=== PATIENT | male | born 1955 | race Caucasian/White ===

== ENCOUNTER → 2020-10-06 15:20 | Outpatient (BNVA) | payer OTHER, SELFPAY | PROVIDERS: PCP Nurse Practitioner Family; Visit Provider Internal Medicine Pulmonary Disease | DX: J44.9 Chronic obstructive pulmonary disease, unspecified (principal); J30.9 Allergic rhinitis, unspecified; R91.8 Other nonspecific abnormal finding of lung field; Z99.81 Dependence on supplemental oxygen | CPT/HCPCS: 99202 ==

== ENCOUNTER 2020-11-11 11:33 | Outpatient (REF) | payer MEDICARE, SELFPAY ==
[2020-11-11 14:33] LABS: Prostate Specific Antigen 2.86 ng/mL (<0.05-4.0)
== END 2020-11-11 11:34 | disposition home or self-care (01) ==
LOC: HO.HMGCLDS 11:33
PROVIDERS: PCP Nurse Practitioner Family; Visit Provider Urology
DX: Z12.5 Encounter for screening for malignant neoplasm of prostate (principal); R97.20 Elevated prostate specific antigen [PSA]
CPT/HCPCS: 36415; 84153

== ENCOUNTER → 2020-11-24 15:55 | Outpatient (BNVA) | payer MEDICARE, SELFPAY | PROVIDERS: PCP Internal Medicine Endocrinology, Diabetes & Metabolism; Visit Provider Urology | DX: R97.20 Elevated prostate specific antigen [PSA] (principal) | CPT/HCPCS: Q3014 ==

== ENCOUNTER → 2021-02-08 09:43 | Outpatient (BNVA) | payer OTHER, SELFPAY | PROVIDERS: PCP Internal Medicine Endocrinology, Diabetes & Metabolism; Visit Provider Internal Medicine Pulmonary Disease | DX: J44.9 Chronic obstructive pulmonary disease, unspecified (principal); R91.8 Other nonspecific abnormal finding of lung field; Z99.81 Dependence on supplemental oxygen | CPT/HCPCS: 99212 ==

== ENCOUNTER 2021-05-03 11:38 | Outpatient (REF) | payer OTHER, SELFPAY ==
[2021-05-03 14:29] LABS: PSA,Total (Free>4and<10) 2.44 ng/mL (0.00-4.00)
== END 2021-05-03 11:39 | disposition home or self-care (01) ==
LOC: HO.HMGCLDS 11:38
PROVIDERS: Visit Provider Urology
DX: Z12.5 Encounter for screening for malignant neoplasm of prostate (principal); N13.8 Other obstructive and reflux uropathy; N40.1 Benign prostatic hyperplasia with lower urinary tract symptoms; R97.20 Elevated prostate specific antigen [PSA]
CPT/HCPCS: 36415; 84153

== ENCOUNTER → 2021-05-24 14:49 | Outpatient (BNVA) | payer OTHER, SELFPAY | PROVIDERS: PCP Internal Medicine Endocrinology, Diabetes & Metabolism; Visit Provider Urology | DX: R97.20 Elevated prostate specific antigen [PSA] (principal); N40.1 Benign prostatic hyperplasia with lower urinary tract symptoms; N13.8 Other obstructive and reflux uropathy | CPT/HCPCS: 99212 ==

== ENCOUNTER → 2021-06-09 09:46 | Outpatient (BNVA) | payer OTHER, SELFPAY | PROVIDERS: PCP Internal Medicine Endocrinology, Diabetes & Metabolism; Visit Provider Internal Medicine Pulmonary Disease | DX: J44.9 Chronic obstructive pulmonary disease, unspecified (principal); R91.8 Other nonspecific abnormal finding of lung field; Z91.09 Other allergy status, other than to drugs and biological substances; Z99.81 Dependence on supplemental oxygen | CPT/HCPCS: 99212 ==

== ENCOUNTER 2021-08-02 08:52 | Day surgery (SDC) | payer OTHER, SELFPAY ==
[2021-07-27 14:41] VITALS: BMI 26.4
--- NOTE | 2021-08-01 09:58 | P.CONAN_ITS ---
Documented by User: Joy Juarez NP 08/01/21 09:59 HPI - Anesthesia Eval Consult details Narrative: 66yo M for Colonoscopy Pulmo cleared O2 dependant @ 2-3L continuous PMFSH Active Problems Active Problems: All Active Problems (Updated 07/27/21 @ 14:31 by Emerald Gayle, RN) COPD (chronic obstructive pulmonary disease) (Acute) Supplemental oxygen dependent (Acute) Allergic rhinitis (Acute) Environmental allergies (Acute) Pulmonary nodules (Acute) Elevated prostate specific antigen [PSA] (Acute) Past Medical History Medical History (Updated 07/27/21 @ 14:31 by Emerald Gayle, RN) Asthma COPD (chronic obstructive pulmonary disease) Elevated prostate specific antigen [PSA] Elevated PSA Gout HTN (hypertension) Hyperlipidemia O2 dependent Surgical History Surgical History (Updated 07/27/21 @ 14:27 by Emerald Gayle RN) History of appendectomy History of left knee surgery History of umbilical hernia repair Social History Social History Patient Tobacco Use Status: Former Tobacco user Tobacco use type: Cigarette Smoked in Last 30 Days: No Use of substances other than those prescribed or required for medical reasons: No Are you DNR?: No Advance Directives: No Advance Directives Information Provided: Yes Recently lost weight without trying: No Nutrition Risks: No Nutritional Risk Meds Allergies Allergy/AdvReac Type Severity Reaction Status Date / Time erythromycin base Allergy Intermediate Diarrhea Verified 08/02/21 09:28 [From Erythrocin] Home Medications Medication Instructions Recorded Confirmed Last Taken Type albuterol sulfate 90 mcg/actuation 2 puff INHALATION QID 02/08/21 07/27/21 Unknown History aerosol inhaler amlodipine 10 mg tablet 10 mg PO DAILY 02/08/21 07/27/21 08/02/21 History atorvastatin 20 mg tablet 20 mg PO DAILY 02/08/21 07/27/21 Unknown History losartan 25 mg tablet 25 mg PO DAILY 02/08/21 07/27/21 08/02/21 History montelukast 10 mg tablet 10 mg PO DAILY 02/08/21 07/27/21 Unknown History fluticasone 500 mcg-salmeterol 50 1 inh INHALATION BID 06/09/21 08/02/21 Unknown History mcg/dose blistr powdr for inhalation (Wixela Inhub) colchicine 0.6 mg tablet 0.6 mg PO DAILY 07/27/21 07/27/21 Unknown History fluticasone 500 mcg-salmeterol 50 1 inh INHALATION BID 08/02/21 08/02/21 08/02/21 History mcg/dose blistr powdr for inhalation (Naomixjulia Inhub) Exam Exam Date and Time: August 01, 2021 0958 Height,Weight and Vital Signs: Height 5 ft 8 in Weight 78.925 kg Assessment and Plan Assessment Anesthesia Assessment: Chart Reviewed Documented by User: Amna Vela MD 08/02/21 10:28 [facility] Past Medical History Medical History (Updated 07/27/21 @ 14:31 by Emerald Gayle RN) Asthma COPD (chronic obstructive pulmonary disease) Elevated prostate specific antigen [PSA] Elevated PSA Gout HTN (hypertension) Hyperlipidemia O2 dependent Family History Family history of problems with anesthesia: No Surgical History Surgical History (Updated 07/27/21 @ 14:27 by Emerald Gayle RN) History of appendectomy History of left knee surgery History of umbilical hernia repair History of Problems with Anesthesia: No Social History Social History Patient Tobacco Use Status: Former Tobacco user Tobacco use type: Cigarette Smoked in Last 30 Days: No Use of substances other than those prescribed or required for medical reasons: No Are you DNR?: No Advance Directives: No Advance Directives Information Provided: Yes Recently lost weight without trying: No Nutrition Risks: No Nutritional Risk Meds Allergies Allergy/AdvReac Type Severity Reaction Status Date / Time erythromycin base Allergy Intermediate Diarrhea Verified 08/02/21 09:28 [From Erythrocin] Home Medications Medication Instructions Recorded Confirmed Last Taken Type albuterol sulfate 90 mcg/actuation 2 puff INHALATION QID 02/08/21 07/27/21 Unknown History aerosol inhaler amlodipine 10 mg tablet 10 mg PO DAILY 02/08/21 07/27/21 08/02/21 History atorvastatin 20 mg tablet 20 mg PO DAILY 02/08/21 07/27/21 Unknown History losartan 25 mg tablet 25 mg PO DAILY 02/08/21 07/27/21 08/02/21 History montelukast 10 mg tablet 10 mg PO DAILY 02/08/21 07/27/21 Unknown History fluticasone 500 mcg-salmeterol 50 1 inh INHALATION BID 06/09/21 08/02/21 Unknown History mcg/dose blistr powdr for inhalation (Wixela Inhub) colchicine 0.6 mg tablet 0.6 mg PO DAILY 07/27/21 07/27/21 Unknown History fluticasone 500 mcg-salmeterol 50 1 inh INHALATION BID 08/02/21 08/02/21 08/02/21 History mcg/dose blistr powdr for inhalation (Wixela Inhub) Exam Height,Weight and Vital Signs: Height 5 ft 8 in Weight 78.925 kg Vital Signs Temp Pulse Resp BP Pulse Ox 08/02/21 09:48 98.5 F 97 18 155/76 H 97 Airway Mallampati Class: III TM Dist: >3cm Neck ROM: Full Loose/Missing/Broken Teeth: No Heart: RRR Lungs: CTAB Assessment and Plan Assessment Anesthesia Assessment: Anesthesia Plan Discussed Final Anesthetic Review Family History of Problems with Anesthesia: No History of Problems with Anesthesia: No NPO: Yes ASA Class: IV Final Preanesthetic Review: No Changes in Pt Med Stat, Meds/Allgs Chart Reviewed, Consent Obtained/Reviewed and Anes Risks/Benef Reviewed Patient Risk: Intermediate Procedure Risk: Low Assessment/Block/Sedation in SS: Assess/Block/Sedation-SS Anesthetic Plan Anesthetic Plan: MAC: Disposition: Standard PACU
[2021-08-02 09:29] VITALS: BMI 26.4
[2021-08-02 09:48] VITALS: BP 155/76; PULSE 97; RESP 18; TEMP 36.9; O2SAT 97
[2021-08-02] MEDS: Lactated Ringers 1,000 ML 100 ML IVCONT (09:58)
--- NOTE | 2021-08-02 10:27 | MHC.SHP ---
Pre-Procedural Eval Section A Date of Service: 08/02/21 The patient is an INPATIENT: No Changes since office visit: No Cold of Flu in the past 2 weeks, No New Medical Problems, No Changes in Medication and No Patient answered all questions The History & Physical has been completed within 30 days and I have reviewed it.: Yes Section B Chief Complaint: screening Allergies: Allergies Allergy/AdvReac Type Severity Reaction Status Date / Time erythromycin base Allergy Intermediate Diarrhea Verified 08/02/21 09:28 [From Erythrocin] Plan I have reviewed the history and physical and performed a pertinent physical examination on my patient. No changes have occurred unless specified.
--- NOTE | 2021-08-02 11:03 | PM.OP ---
Brief Operative Note Date of Service: 08/02/21 Pre-op diagnosis: screening Post-op diagnosis: same Procedure: colonoscopy Surgeon: Genaro Oquendo Anesthesia: MAC Was an Regulatory Associate used for this Procedure?: No Estimated blood loss (mL): 0 Pathology: other Condition: stable Disposition: PACU
[2021-08-02 11:07] VITALS: BP 101/56; PULSE 87; RESP 16; TEMP 36.2; O2SAT 97
[2021-08-02 11:24] VITALS: BP 133/70; PULSE 91; RESP 16; TEMP 36.2; O2SAT 97
--- NOTE | 2021-08-02 11:52 | OP_ITS ---
SURGEON: Genaro Oquendo MD INDICATIONS: Colon cancer screening. PREOPERATIVE DIAGNOSIS: POSTOPERATIVE DIAGNOSIS: PROCEDURE PERFORMED: Colonoscopy to the terminal ileum with snare polypectomy. ESTIMATED BLOOD LOSS: COMPLICATIONS: ANESTHESIA: ASSISTANTS: SPECIMENS: MEDICATIONS: Monitored anesthesia care. DESCRIPTION OF PROCEDURE: History and physical were performed. The risks and benefits of the procedure were explained to the patient. Informed consent was obtained. The patient was placed in the left lateral decubitus position. A digital rectal exam was performed and was found to be normal. The Olympus pediatric video colonoscope was introduced into the rectum and advanced to the cecum without difficulty. The cecum was identified by transillumination, palpation, and identification of ileocecal valve. Examination was performed. The scope was removed. He tolerated the procedure well and was taken to recovery area in stable condition. FINDINGS: The terminal ileum was examined and appeared normal. The visualized colonic mucosa was normal. The quality of the prep was good. Three polyps were identified and removed with a snare. The largest 2 measured approximately 8-10 mm and were located at 70 and 60 cm. The 3rd was located in the rectum measuring 6 mm. There was mild sigmoid diverticulosis with some redundancy to the sigmoid. Retroflexed examination showed some internal hemorrhoids and hypertrophic anal papillae. IMPRESSION: Colon polyps. RECOMMENDATION: Follow up the biopsy results. MD ALEX Sorenson/REGGIE / [id number]
== END 2021-08-02 11:52 | disposition home or self-care (01) ==
PROVIDERS: PCP Nurse Practitioner Family; Visit Provider Internal Medicine Gastroenterology
PROC: 0DJD8ZZ Inspection of Lower Intestinal Tract, Via Natural or Artificial Opening Endoscopic (ICD-10-PCS; CPT 45378; principal; 2021-08-02 10:10)
DX: Z12.11 Encounter for screening for malignant neoplasm of colon (principal); Z83.71 Family history of colonic polyps; D12.4 Benign neoplasm of descending colon; D12.8 Benign neoplasm of rectum; K57.30 Diverticulosis of large intestine without perforation or abscess without bleeding; K64.8 Other hemorrhoids; K62.89 Other specified diseases of anus and rectum; R97.20 Elevated prostate specific antigen [PSA]; J44.9 Chronic obstructive pulmonary disease, unspecified; I10 Essential (primary) hypertension; E78.5 Hyperlipidemia, unspecified; M10.9 Gout, unspecified; Z99.81 Dependence on supplemental oxygen; Z79.51 Long term (current) use of inhaled steroids; Z88.1 Allergy status to other antibiotic agents
CPT/HCPCS: 45385; 88305; J2250

== ENCOUNTER 2021-11-16 13:34 | Outpatient (REF) | payer OTHER, SELFPAY ==
[2021-11-16 17:09] LABS: PSA,Total (Free>4and<10) 2.35 ng/mL (0.00-4.00)
== END 2021-11-16 13:35 | disposition home or self-care (01) ==
LOC: HO.HMGCLDS 13:34
PROVIDERS: PCP Nurse Practitioner Family; Visit Provider Urology
DX: Z12.5 Encounter for screening for malignant neoplasm of prostate (principal); N13.8 Other obstructive and reflux uropathy; N40.1 Benign prostatic hyperplasia with lower urinary tract symptoms; R97.20 Elevated prostate specific antigen [PSA]
CPT/HCPCS: 36415; 84153

== ENCOUNTER → 2021-11-24 11:34 | Outpatient (BNVA) | payer OTHER, SELFPAY | PROVIDERS: PCP Nurse Practitioner Family; Visit Provider Urology | DX: R97.20 Elevated prostate specific antigen [PSA] (principal) | CPT/HCPCS: 99212 ==

== ENCOUNTER → 2021-12-14 10:34 | Outpatient (BNVA) | payer OTHER, SELFPAY | PROVIDERS: PCP Nurse Practitioner Family; Visit Provider Internal Medicine Pulmonary Disease | DX: J44.9 Chronic obstructive pulmonary disease, unspecified (principal); R91.8 Other nonspecific abnormal finding of lung field; Z99.81 Dependence on supplemental oxygen | CPT/HCPCS: 99212 ==

== ENCOUNTER 2022-07-13 15:42 | Outpatient (REF) | payer OTHER, SELFPAY ==
--- NOTE | ~2022-07-13 | CT_ITS ---
EXAMINATION: CT CHEST WITHOUT CONTRAST CLINICAL INFORMATION: Abnormal lung findings. COMPARISON: None available at this institution. TECHNIQUE: Multidetector volumetric CT imaging of the chest was done. Axial MIP volume rendering provided. Sagittal and coronal reformatted images were obtained. This CT examination was performed using dose optimization techniques as appropriate, variously including the following: *Automated exposure control *Adjustment of mA and/or kV according to patient size (this includes techniques or standardized protocols for targeted exams where dose is matched to indication/reason for exam; i.e. extremities or head) *Use of iterative reconstruction technique DLP: 134 mGy-cm FINDINGS: SMALL ENGINE SPECIALIST: Hyperinflated lungs without acute process. LUNGS: There is centrilobular emphysema with patchy ill-defined 1.0 x 0.6 cm opacity right upper lobe adjacent mediastinum, axial image 175/7 and 1 cm opacity left lung apex image 118/7. The 5 mm nodule right upper lobe adjacent posterior mediastinum image 204/7. There is a 5 mm focal thickening within the right major fissure likely lymph node. This mild thickening is also seen in the left major fissure axial image 322/7. There is focal subpleural atelectatic changes right lower lobe posterior segment. MEDIASTINUM: The thyroid lobes are symmetric and normal. The central trachea and the bronchi are widely patent. The heart size normal. Atherosclerotic heart calcified plaques throughout the thoracic arch without aneurysmal dilatation. No abnormal size mediastinal lymph nodes visualized. There is no pericardial effusion. CORONARY ARTERY CALCIFICATION: Moderate coronary artery calcifications are present. PLEURA: There is no pleural effusion. No pleural mass or thickening. AXILLA: Small shotty lymph nodes are seen in bilateral axilla with the largest lymph node measuring 1 cm, nonsuspicious. The chest wall is unremarkable. UPPER ABDOMEN: There is a hypodense lesion in the left hepatic lobe lateral segment measuring 1.5 cm, nonspecific and likely focal fatty infiltration or a cyst. The rest of the liver, spleen, pancreas and bilateral adrenal glands are unremarkable. Gallbladder is not visualized however limited view of upper abdomen. OSSEOUS STRUCTURES: No aggressive lytic or sclerotic process seen. CT/CT chest wo IV con IMPRESSION: 1. Centrilobular emphysema with bilateral upper lobe ill-defined opacities. These could be new inflammatory or infectious etiology or resolving inflammatory changes. There are no previous exams at this institution. 2. There is a 5 mm nodule right upper lobe adjacent to the posterior mediastinum. 3. No abnormal mediastinal or axillary lymph nodes seen. 4. Moderate coronary artery calcifications. 5. Hypodense lesion left lobe lateral segment likely focal fatty infiltration or a cyst. This can be correlated with liver ultrasound. Fleischner guidelines were followed.
== END 2022-07-13 15:43 | disposition home or self-care (01) ==
LOC: HO.CT 15:42
PROVIDERS: Visit Provider Internal Medicine Pulmonary Disease
DX: R91.8 Other nonspecific abnormal finding of lung field (principal)
CPT/HCPCS: 71250

== ENCOUNTER → 2022-07-14 11:04 | Outpatient (BNVA) | payer OTHER, SELFPAY | PROVIDERS: PCP Internal Medicine Endocrinology, Diabetes & Metabolism; Visit Provider Internal Medicine Pulmonary Disease | DX: J44.9 Chronic obstructive pulmonary disease, unspecified (principal); R91.8 Other nonspecific abnormal finding of lung field; Z91.09 Other allergy status, other than to drugs and biological substances; Z99.81 Dependence on supplemental oxygen | CPT/HCPCS: 99212 ==

== ENCOUNTER 2022-11-07 12:49 | Outpatient (REF) | payer OTHER, SELFPAY | END 2022-11-07 12:50 | disposition home or self-care (01) | LOC: HO.HMGCLDS 12:49 | PROVIDERS: PCP Nurse Practitioner Family; Visit Provider Urology | DX: Z12.5 Encounter for screening for malignant neoplasm of prostate (principal); R97.20 Elevated prostate specific antigen [PSA] | CPT/HCPCS: 36415; 84153 ==

== ENCOUNTER 2022-11-24 13:22 | Outpatient (AMB) | payer OTHER, SELFPAY ==
--- NOTE | 2022-11-24 13:36 | A.OFFVIS_ITS ---
Intake Intake Visit Reasons: 1Y PSA(set) Intake Note: Patient presents for follow up PSA Urology Medications: none Blood Thinner: none Accompanied by: Self / Same As Patient Allergies erythromycin base [From Erythrocin] Allergy (Intermediate, Verified 11/24/22 13:40) Diarrhea Medication List - Last Reconciled 11/24/22 by Kenan Abbasi MD albuterol sulfate 90 mcg/actuation 2 puffs inhalation QID amlodipine 10 mg PO DAILY atorvastatin 20 mg PO DAILY azelastine 2 sprays intranasal BID 30 days budesonide-formoterol 160-4.5 mcg/actuation (Symbicort) 2 puffs inhalation BID 30 days colchicine (gout) 0.6 mg PO DAILY losartan 25 mg PO DAILY montelukast 10 mg PO DAILY HPI HPI Comments History of Present Illness Details Bharat HAYES is a very pleasant male. He is a patient of Dr Mosley. He is seen for the following urologic conditions. - lower urinary tract symptoms - elevated PSA Twelve month follow-up PSA remains low Symptoms controlled P.r.n. follow-up Lower Urinary Tract Symptoms:?Likely baseline irritation. 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 ? Current visit is for?further evaluation of, lower urinary tract symptoms, predominate obstructive symptoms.? Current treatment includes?observation.? Prostate Symptom Score?11/28 , Moderate (-), Bother 3.? Symptoms include?11/28 , incomplete emptying, weak stream, nocturia (>2), and are progressing.? Results from testing include? renal/bladder us ?Yes ? PVR ?30 ? prostate size ?40 Heterogeneous with calcifications ? Prior Prostate Score?unknown.? PSA?09/27 12.5, 11/28 2.3, 05/01 4.0, 10/29 2.0, 10/30 2.8, 05/03 2.4, 12/01 2.4, 12/02 2.7 ? Prostate volume?30-50gm.? Testing at next visit will include?bladder scan.? PFSH Medical History Asthma COPD (chronic obstructive pulmonary disease) Elevated prostate specific antigen [PSA] Elevated PSA Gout HTN (hypertension) Hyperlipidemia O2 dependent Surgical History History of appendectomy History of left knee surgery History of umbilical hernia repair Social History Patient Tobacco Use Status: Former Tobacco user Tobacco use type: Cigarette Review of Systems Const Denies chills and Denies fever(s) Card Reports no additional complaints and Denies syncope Resp Denies cough GI Denies abdominal pain and Denies heartburn Reports as per HPI and Denies change in libido Neuro Denies syncope Psych Denies change in libido Endo Denies change in libido Physical Exam Const General: cooperative, healthy appearing, comfortable and no acute distress Orientation/consciousness: patient oriented x3 HEENT Face and sinus: Yes normal facial exam Mouth: moist mucous membranes Neck Neck: Yes normal visual inspection, Yes full ROM and Yes trachea midline Chest Chest palpation & inspection: normal inspection of the chest Resp Effort & Inspection: normal respiratory effort, able to speak in complete sentences and no respiratory distress GI Inspection: Yes normal to inspection Back/Spine/Pelvis Cervical Spine: normal cervical lordosis Thoracic/Lumbar Spine: thoracic and lumbar spine normal to inspection Skin General skin exam: no rashes or lesions noted Neuro General: patient oriented x3, gait normal, tone normal and moves all extremities Extrem General: Yes normal to inspection and Yes capillary refill normal Assessment & Plan Assessment & Plan (1) Elevated prostate specific antigen [PSA]: Code(s): R97.20 - Elevated prostate specific antigen [PSA] Plan P.r.n. follow-up Patient Instructions: Imaging studies, laboratory and physical exam results were discussed and reviewed in detail. No major barriers to patient understanding were identified. An opportunity to ask questions regarding the treatment plan was provided. All questions were answered. The patient expressed understanding and agreement with the above treatment plan. The patient is aware they should contact our office by phone for worsening of their current condition or the appearance of new urologic symptoms. Compliance is encouraged with any medications and followup testing that is ordered. It is a privilege to participate in the urologic care of your patient. If you have any questions or concerns regarding treatment for the above conditions, or other urologic issues, please do not hesitate to contact me. The office telephone contact is [phone]. This note is constructed using voice recognition software. While every effort has been made to ensure accuracy rubber covering machine operator errors may have been included. Yours sincerely, Dr Kenan Abbasi MD, [facility] - Urology Providers of Expert, Compassionate Care for the Genitourinary System Coding Level of Care Code Est Pt Level 4 (36540) Diagnoses Elevated prostate specific antigen [PSA] R97.20
== END 2022-11-24 14:09 | disposition home or self-care (01) ==
PROVIDERS: PCP Nurse Practitioner Family; Visit Provider Urology
DX: R97.20 Elevated prostate specific antigen [PSA] (principal)
CPT/HCPCS: 99213

== ENCOUNTER → 2022-11-24 13:22 | Outpatient (BNVA) | payer OTHER, SELFPAY | PROVIDERS: Visit Provider Urology | DX: R97.20 Elevated prostate specific antigen [PSA] (principal) | CPT/HCPCS: 99212 ==

== ENCOUNTER 2023-01-16 10:47 | Outpatient (AMB) | payer OTHER, SELFPAY ==
[2023-01-16 11:06] VITALS: BP 128/66; PULSE 89; O2SAT 94; BMI 27.1
--- NOTE | 2023-01-16 11:06 | MHC.OFFVIS ---
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 After the last office visit his Wixela been switched to Symbicort secondary to poor tolerance of powder inhalers id now he reports improved symptom control. He denies recent exacerbations. He intermittently uses a Flonase or azelastine for allergic symptoms. He is interested in pulmonary rehab. [facility] Medical History Asthma COPD (chronic obstructive pulmonary disease) Elevated prostate specific antigen [PSA] Elevated PSA Gout HTN (hypertension) Hyperlipidemia O2 dependent Surgical History History of appendectomy History of left knee surgery History of umbilical hernia repair Social History Patient Tobacco Use Status: Former Tobacco user Tobacco use type: Cigarette Review of Systems Const Denies daytime sleepiness, Denies excessive sweating, Denies fatigue, Denies fever(s), Denies lethargy, Denies malaise, Denies night sweats, Denies snoring and Denies weight loss Eyes Denies blurry vision and Denies itchy eyes ENT Denies nasal congestion, Denies post nasal drip, Denies sinus pain, Denies sinus pressure and Denies other ( Thrush) Card Denies chest pain, Denies pedal edema, Denies dyspnea, Denies orthopnea and Denies paroxysmal nocturnal dyspnea Resp Denies cough, Denies hemoptysis, Denies excessive phlegm production, Denies dyspnea, Denies snoring and Denies wheezing GI Denies abdominal pain and Denies heartburn Musc Denies myalgias, Denies arthralgias and Denies joint swelling Skin/Breast Denies rash Neuro Denies memory loss and Denies seizure-like activity Psych Denies abnormal sleep pattern, Denies anxiety and Denies memory loss Endo Denies excessive sweating, Denies fatigue and Denies heat intolerance Dominick/Lymph Denies easy bruising Aller/Immun Denies itchy eyes, Denies seasonal rhinorrhea and Denies wheezing Physical Exam Vital Signs: Last Vital Signs Pulse 89 01/16/23 11:06 BP 128/66 01/16/23 11:06 Pulse Ox 94 01/16/23 11:06 Oxygen Delivery Method Nasal Cannula 01/16/23 11:06 Oxygen Flow Rate 3 01/16/23 11:06 BMI result Body Mass Index 27.1 Const General: no acute distress and alert Nutritional Appearance: not obese Orientation/consciousness: Other orientation findings ( oriented) HEENT Head: Yes atraumatic Eyes General: appearance normal, both eyes and all related structures Sclerae: sclerae normal EOM: EOMs intact bilaterally Neck Neck: Yes supple Lymphatic: no lymphadenopathy noted Resp Effort & Inspection: normal respiratory effort and no use of accessory muscles Auscultation: clear to auscultation bilaterally Cardio Rate: regular rate Rhythm: regular rhythm Heart sounds: no gallops, no murmurs and no rubs Skin General skin exam: other ( warm) Extrem General: No clubbing, No cyanosis and No edema Assessment & Plan Assessment & Plan (1) COPD (chronic obstructive pulmonary disease): Code(s): J44.9 - Chronic obstructive pulmonary disease, unspecified Plan: Controlled current regimen of Symbicort, Spiriva, and albuterol MDI. Continue current regimen. Will refer to Pulmonary Rehab. (2) Supplemental oxygen dependent: Code(s): Z99.81 - Dependence on supplemental oxygen Plan: Continue supplemental oxygen to maintain O2 saturation of 88-92%. (3) Pulmonary nodules: Code(s): R91.8 - Other nonspecific abnormal finding of lung field Plan: Results of CT chest from July of 2019 reviewed, new ground-glass nodules up to [address] chest. (4) Environmental allergies: Code(s): Z91.09 - Other allergy status, other than to drugs and biological substances Plan: Well controlled on as needed Flonase, Singulair, and azelastine. Orders: Orders PFT pulmonary function test Today J44.9 - Chronic obstructive pulmonary disease, unspecified Pulmonary Rehab Today J44.9 - Chronic obstructive pulmonary disease, unspecified CT chest wo IV con Today R91.8 - Other nonspecific abnormal finding of lung field Coding Level of Care Code Est Pt Level 4 (31564) Diagnoses COPD (chronic obstructive pulmonary disease) J44.9 Supplemental oxygen dependent Z99.81 Pulmonary nodules R91.8 Environmental allergies Z91.09
== END 2023-01-16 11:30 | disposition home or self-care (01) ==
PROVIDERS: PCP Nurse Practitioner Family; Visit Provider Internal Medicine Pulmonary Disease
DX: J44.9 Chronic obstructive pulmonary disease, unspecified (principal); Z99.81 Dependence on supplemental oxygen; R91.8 Other nonspecific abnormal finding of lung field; Z91.09 Other allergy status, other than to drugs and biological substances
CPT/HCPCS: 99214

== ENCOUNTER → 2023-01-16 10:47 | Outpatient (BNVA) | payer OTHER, SELFPAY | PROVIDERS: Visit Provider Internal Medicine Pulmonary Disease | DX: J44.9 Chronic obstructive pulmonary disease, unspecified (principal); R91.8 Other nonspecific abnormal finding of lung field; Z91.09 Other allergy status, other than to drugs and biological substances; Z87.891 Personal history of nicotine dependence; Z99.81 Dependence on supplemental oxygen | CPT/HCPCS: 99212 ==

== ENCOUNTER 2023-03-20 10:09 | Outpatient (REF) | payer OTHER, SELFPAY ==
--- NOTE | ~2023-03-20 | CT_ITS ---
EXAMINATION: CT CHEST WITHOUT CONTRAST CLINICAL INFORMATION: Abnormal finding in lung field. COMPARISON: CT chest 07/13/2022: Centrilobular emphysema with bilateral upper lobe ill-defined opacities. These could be new inflammatory or infectious etiology or resolving inflammatory changes. There are no previous exams at this institution. TECHNIQUE: Multidetector volumetric CT imaging of the chest was done. Axial MIP volume rendering provided. Sagittal and coronal reformatted images were obtained. This CT examination was performed using dose optimization techniques as appropriate, variously including the following: *Automated exposure control *Adjustment of mA and/or kV according to patient size (this includes techniques or standardized protocols for targeted exams where dose is matched to indication/reason for exam; i.e. extremities or head) *Use of iterative reconstruction technique DLP: 251 mGy-cm FINDINGS: LUNGS: Again seen are changes of marked emphysema. The previously seen new ill-defined opacity in the right upper lobe (prior 7:175) as well as the spiculated 1 cm opacity left upper lobe (prior 7:121) have resolved indicating that these were inflammatory in nature and not neoplastic. Some other tiny micronodules are seen which are unchanged. No new mass is seen concerning for malignancy. MEDIASTINUM: Heart size normal. Aortic calcification is seen. The visualized thyroid is unremarkable. No mediastinal or hilar lymphadenopathy is seen CORONARY ARTERY CALCIFICATION: Moderate PLEURA: There is no pleural effusion. No pleural mass or thickening. AXILLA: No lymphadenopathy. UPPER ABDOMEN: Unremarkable. Benign cyst is noted in the left lobe of the liver. OSSEOUS STRUCTURES: Degenerative changes are present in the spine. No bony destructive lesions. CT/CT chest wo IV con IMPRESSION: 1. Resolution of previously seen new bilateral upper lobe pulmonary opacities indicating that these were inflammatory in nature and not neoplastic. 2. Marked emphysema. 3. Other incidental findings as described above including benign hepatic cyst and degenerative changes in the spine. Fleischner guidelines were followed.
--- NOTE | 2023-03-20 11:18 | PFT_ITS ---
Indication: COPD the Spirometry [FEV1 to FVC 49%; FEV 1 1.15 L; FVC 2.34 L. No significant response to bronchodilators noted. Maximum voluntary ventilation 35% predicted] Lung Volumes [Lung volume numbers could not be measured] Diffusion Capacity [DLCO 31% predicted] Comparisons [none] Interpretation [There is an obstructive ventilatory defect consistent with severe COPD. No significant response to bronchodilators noted. There is a severe decrease in the maximum voluntary ventilation likely secondary to worsening dynamic inspiratory capacity and also deconditioning. Again lung volumes cannot be completed due to the fact the patient cannot perform the maneuvers required. There is a severe diffusion impairment likely secondary to emphysema. Other parenchymal and or pulmonary vascular condition should be considered.] MTDD
== END 2023-03-20 10:10 | disposition home or self-care (01) ==
LOC: HO.CT 10:09
PROVIDERS: PCP Nurse Practitioner Family; Visit Provider Internal Medicine Pulmonary Disease
DX: R91.8 Other nonspecific abnormal finding of lung field (principal); J44.9 Chronic obstructive pulmonary disease, unspecified
CPT/HCPCS: 71250

== ENCOUNTER 2023-03-20 11:59 | Outpatient (AMB) | payer OTHER, SELFPAY ==
--- NOTE | 2023-03-20 12:01 | AM.OFFVISNUR ---
Intake Intake Visit Reasons: 6MW Allergies erythromycin base [From Erythrocin] Allergy (Intermediate, Verified 01/16/23 11:07) Diarrhea Office Procedures 6 Minute Walk Time:: 11:35 SPO2 % at rest: 93 Pulse at rest: 96 SPO2 % during excercise: 86 (86% in room air, pt placed on 3 lpm cont flow O2 sat increased to 94%) Pulse during excercise: 106 6 Minute Walk (with oxygen) Time:: 11:45 SPO2 % at rest:: 94 (3lpm cont flow) Pulse at rest:: 86 SPO2 % during exercise:: 87 (O2 increased from 3 - 4lpm cont flow) Pulse during exercise:: 100 SPO2 % after exercise: 96 Pulse after exercise:: 84 Distance in yards walked:: 400 Joselito Score:: 6 Supplemental Oxygen: Patient ambulated on level ground without assistance. After 1 minute on ambulation on R/A O2 decreased to 86% O2 applied at 3lpm cont flow after 2 minutes O2 sat decreased to 86% increased O2 4lpm cont flow O2 sats stable 94% Recommend O2 at 4lpm cont flow. 59121 - 6 Minute Walk Coding CPT Codes Coding ([id number])
[2023-03-20 12:07] VITALS: PULSE 86; PULSE 96; O2SAT 93; O2SAT 94
== END 2023-03-20 12:08 | disposition home or self-care (01) ==
PROVIDERS: PCP Nurse Practitioner Family; Visit Provider Internal Medicine Pulmonary Disease
DX: J44.9 Chronic obstructive pulmonary disease, unspecified (principal)
CPT/HCPCS: 94060; 94729

== ENCOUNTER 2023-07-13 10:50 | Outpatient (AMB) | payer OTHER, SELFPAY ==
[2023-07-13 10:58] VITALS: BP 104/62; PULSE 94; O2SAT 97; BMI 28.1
--- NOTE | 2023-07-13 10:58 | A.OFFVIS_ITS ---
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 He has been using Symbicort, Spiriva, and albuterol MDI with good control of his symptoms. For his allergies he has been using azelastine and Singulair, also with reasonable control, though sometimes seasonal exacerbations. He denies any recent exacerbations of his underlying COPD. [facility] Medical History Asthma COPD (chronic obstructive pulmonary disease) Elevated prostate specific antigen [PSA] Elevated PSA Gout HTN (hypertension) Hyperlipidemia O2 dependent Surgical History History of appendectomy History of left knee surgery History of umbilical hernia repair Social History Patient Tobacco Use Status: Former Tobacco user Tobacco use type: Cigarette Review of Systems Const Denies daytime sleepiness, Denies excessive sweating, Reports fatigue, Denies fever(s), Denies lethargy, Denies malaise, Denies night sweats, Reports snoring and Denies weight loss Eyes Denies blurry vision and Denies itchy eyes ENT Denies nasal congestion, Denies post nasal drip, Denies sinus pain, Denies sinus pressure and Denies other ( Thrush) Card Denies chest pain, Denies pedal edema, Denies dyspnea, Denies orthopnea and Denies paroxysmal nocturnal dyspnea Resp Denies cough, Denies hemoptysis, Denies excessive phlegm production, Denies dyspnea, Reports snoring and Denies wheezing GI Denies abdominal pain and Denies heartburn Musc Denies myalgias, Denies arthralgias and Denies joint swelling Skin/Breast Denies rash Neuro Denies memory loss and Denies seizure-like activity Psych Denies abnormal sleep pattern, Denies anxiety and Denies memory loss Endo Denies excessive sweating, Reports fatigue and Denies heat intolerance Dominick/Lymph Denies easy bruising Aller/Immun Denies itchy eyes, Denies seasonal rhinorrhea and Denies wheezing Physical Exam Vital Signs: Last Vital Signs Pulse 94 07/13/23 10:58 BP 104/62 07/13/23 10:58 Pulse Ox 97 07/13/23 10:58 Oxygen Delivery Method Nasal Cannula 07/13/23 10:58 Oxygen Flow Rate 4 07/13/23 10:58 BMI result Body Mass Index 28.1 Const General: no acute distress and alert Nutritional Appearance: not obese Orientation/consciousness: Other orientation findings ( oriented) HEENT Head: Yes atraumatic Eyes General: appearance normal, both eyes and all related structures Sclerae: sclerae normal EOM: EOMs intact bilaterally Neck Neck: Yes supple Lymphatic: no lymphadenopathy noted Resp Effort & Inspection: normal respiratory effort and no use of accessory muscles Auscultation: clear to auscultation bilaterally Cardio Rate: regular rate Rhythm: regular rhythm Heart sounds: no gallops, no murmurs and no rubs Skin General skin exam: other ( warm) Extrem General: No clubbing, No cyanosis and No edema Assessment & Plan Assessment & Plan (1) COPD (chronic obstructive pulmonary disease): Code(s): J44.9 - Chronic obstructive pulmonary disease, unspecified Category: Medical Plan: Well controlled on current regimen of Symbicort, Spiriva 2.5, and albuterol MDI. Continue current regimen. (2) Supplemental oxygen dependent: Code(s): Z99.81 - Dependence on supplemental oxygen Category: Medical Plan: Continue supplemental oxygen to maintain O2 saturation of 88-92%. (3) Environmental allergies: Code(s): Z91.09 - Other allergy status, other than to drugs and biological substances Category: Medical Plan: Usually reasonably controlled on montelukast and azelsatine. Continue current regimen. (4) Pulmonary nodules: Code(s): R91.8 - Other nonspecific abnormal finding of lung field Category: Medical Plan: Results of CT chest reviewed, resolution of previously noted opacities, thus likely inflammatory versus infectious in nature. No worrisome nodules at that time. (5) ALEENA (obstructive sleep apnea): Code(s): G47.33 - Obstructive sleep apnea (adult) (pediatric) Category: Medical Plan: Patient does complain of unrestful sleep, snoring, and daytime somnolence. Ep worth Sleepiness Scale score of 16. Will obtain home sleep study. Orders: Orders RT home sleep study Today G47.33 - Obstructive sleep apnea (adult) (pediatric) Coding Level of Care Code Est Pt Level 5 (06189) Diagnoses COPD (chronic obstructive pulmonary disease) J44.9 Supplemental oxygen dependent Z99.81 Environmental allergies Z91.09 Pulmonary nodules R91.8 ALEENA (obstructive sleep apnea) G47.33
== END 2023-07-13 11:18 | disposition home or self-care (01) ==
PROVIDERS: PCP Nurse Practitioner Family; Visit Provider Internal Medicine Pulmonary Disease
DX: J44.9 Chronic obstructive pulmonary disease, unspecified (principal); Z99.81 Dependence on supplemental oxygen; Z91.09 Other allergy status, other than to drugs and biological substances; R91.8 Other nonspecific abnormal finding of lung field; G47.33 Obstructive sleep apnea (adult) (pediatric)
CPT/HCPCS: 99214

== ENCOUNTER → 2023-07-13 10:50 | Outpatient (BNVA) | payer OTHER, SELFPAY | PROVIDERS: PCP Nurse Practitioner Family; Visit Provider Internal Medicine Pulmonary Disease | DX: J44.9 Chronic obstructive pulmonary disease, unspecified (principal); R91.8 Other nonspecific abnormal finding of lung field; G47.33 Obstructive sleep apnea (adult) (pediatric); Z91.09 Other allergy status, other than to drugs and biological substances; Z79.899 Other long term (current) drug therapy; Z99.81 Dependence on supplemental oxygen | CPT/HCPCS: 99212 ==

== ENCOUNTER → 2023-08-21 10:45 | Outpatient (REF) | payer OTHER, SELFPAY | LOC: HO.SL 10:45 | PROVIDERS: PCP Nurse Practitioner Family; Visit Provider Internal Medicine Pulmonary Disease | DX: G47.33 Obstructive sleep apnea (adult) (pediatric) (principal); R06.83 Snoring | CPT/HCPCS: 95806 ==

== ENCOUNTER → 2023-08-21 10:55 | Outpatient (BNV) | payer OTHER, SELFPAY | PROVIDERS: PCP Nurse Practitioner Family; Visit Provider Internal Medicine | DX: G47.33 Obstructive sleep apnea (adult) (pediatric) (principal) | CPT/HCPCS: 95806 ==

== ENCOUNTER 2024-01-17 10:58 | Outpatient (AMB) | payer OTHER, SELFPAY ==
[2024-01-17 11:00] VITALS: BP 132/58; PULSE 93; O2SAT 96; BMI 27.4
--- NOTE | 2024-01-17 11:00 | A.OFFVIS_ITS ---
Vital Signs 01/17/24 11:00 Height 5 ft 8 in Weight 180 lb BMI 27.4 BP 132/58 L Blood Pressure Location Rt brachial Position Sitting Pulse 93 Pulse Source Doppler Pulse Oximetry (%) 96 Oxygen Delivery Method Nasal Cannula Oxygen Flow Rate 3 Intake Visit Reasons: COPD Allergies erythromycin base [From Erythrocin] Allergy (Intermediate, Verified 01/17/24 11:03) Diarrhea HPI HPI COPD: Details: 68-year-old gentleman, former 30+ pack-year smoker, quit 2006, followed for severe supplemental oxygen 2-3 L continuous flow or 5 L pulsed flow dependent asthma/COPD overlap syndrome. He has been using Symbicort, Spiriva, and albuterol MDI with good control of his symptoms. He has ran out of azelastine so his allergy symptoms are not as well controlled.. He denies any recent exacerbations of his underlying COPD. His sleep study showed no evidence of underlying obstructive sleep apnea. [facility] Medical History (Updated 01/17/24 @ 11:28 by Donovan De Paz MD) O2 dependent Elevated PSA Gout Hyperlipidemia HTN (hypertension) COPD (chronic obstructive pulmonary disease) Asthma Elevated prostate specific antigen [PSA] Surgical History History of left knee surgery History of umbilical hernia repair History of appendectomy Social History Patient Tobacco Use Status: Former Tobacco user Tobacco use type: Cigarette Review of Systems Const Denies daytime sleepiness, Denies excessive sweating, Denies fatigue, Denies fever(s), Denies lethargy, Denies malaise, Denies night sweats, Denies snoring and Denies weight loss Eyes Denies blurry vision and Denies itchy eyes ENT Reports nasal congestion, Reports post nasal drip, Denies sinus pain, Denies sinus pressure and Denies other ( Thrush) Card Denies chest pain, Denies pedal edema, Denies dyspnea, Denies orthopnea and Denies paroxysmal nocturnal dyspnea Resp Denies cough, Denies hemoptysis, Denies excessive phlegm production, Denies dyspnea, Denies snoring and Denies wheezing GI Denies abdominal pain and Denies heartburn Musc Denies myalgias, Denies arthralgias and Denies joint swelling Skin/Breast Denies rash Neuro Denies memory loss and Denies seizure-like activity Psych Denies abnormal sleep pattern, Denies anxiety and Denies memory loss Endo Denies excessive sweating, Denies fatigue and Denies heat intolerance Dominick/Lymph Denies easy bruising Aller/Immun Denies itchy eyes, Denies seasonal rhinorrhea and Denies wheezing Physical Exam Vital Signs: Last Vital Signs Pulse 93 01/17/24 11:00 BP 132/58 L 01/17/24 11:00 Pulse Ox 96 01/17/24 11:00 Oxygen Delivery Method Nasal Cannula 01/17/24 11:00 Oxygen Flow Rate 3 01/17/24 11:00 BMI result Body Mass Index 27.4 Const General: no acute distress and alert Nutritional Appearance: not obese Orientation/consciousness: Other orientation findings ( oriented) HEENT Head: Yes atraumatic Eyes General: appearance normal, both eyes and all related structures Sclerae: sclerae normal EOM: EOMs intact bilaterally Neck Neck: Yes supple Lymphatic: no lymphadenopathy noted Resp Effort & Inspection: normal respiratory effort and no use of accessory muscles Auscultation: clear to auscultation bilaterally Cardio Rate: regular rate Rhythm: regular rhythm Heart sounds: no gallops, no murmurs and no rubs Skin General skin exam: other ( warm) Extrem General: No clubbing, No cyanosis and No edema Assessment & Plan Assessment & Plan (1) COPD (chronic obstructive pulmonary disease): Code(s): J44.9 - Chronic obstructive pulmonary disease, unspecified Category: Medical Plan: Reasonable control on current regimen of Symbicort, Spiriva, and albuterol MDI. Continue current regimen. (2) Supplemental oxygen dependent: Code(s): Z99.81 - Dependence on supplemental oxygen Category: Medical Plan: Continue supplemental oxygen to maintain O2 saturation of 88-92%. (3) Environmental allergies: Code(s): Z91.09 - Other allergy status, other than to drugs and biological substances Category: Medical Plan: Suboptimal control off azelastine. Restart azelastine. Medications: Refilled azelastine administer into each nostril 2 sprays intranasal BID 30 mL 6RF 30 days Coding Level of Care Code Est Pt Level 4 (69099) Complex EM visit Add On G2211 Diagnoses COPD (chronic obstructive pulmonary disease) J44.9 Supplemental oxygen dependent Z99.81 Environmental allergies Z91.09
== END 2024-01-17 11:20 | disposition home or self-care (01) ==
LOC: HO.HPS 10:59
PROVIDERS: PCP Nurse Practitioner Family; Visit Provider Internal Medicine Pulmonary Disease
DX: J44.9 Chronic obstructive pulmonary disease, unspecified (principal); Z99.81 Dependence on supplemental oxygen; Z91.09 Other allergy status, other than to drugs and biological substances
CPT/HCPCS: 99214; G2211

== ENCOUNTER → 2024-01-17 10:58 | Outpatient (BNVA) | payer OTHER, SELFPAY | PROVIDERS: PCP Nurse Practitioner Family; Visit Provider Internal Medicine Pulmonary Disease | DX: J44.9 Chronic obstructive pulmonary disease, unspecified (principal); Z91.09 Other allergy status, other than to drugs and biological substances; Z87.891 Personal history of nicotine dependence; Z99.81 Dependence on supplemental oxygen | CPT/HCPCS: 99212 ==

== ENCOUNTER 2024-06-07 12:06 | Emergency (ER) | payer OTHER, SELFPAY ==
--- NOTE | ~2024-06-07 | XR_ITS ---
CLINICAL HISTORY: shortness of breath, copd Single view of the chest. COMPARISON: None FINDINGS: Normal heart and mediastinal contours. Hazy right basilar airspace opacities. No pleural effusion or pneumothorax. No fracture identified. IMPRESSION: 1. Hazy right basilar pulmonary opacities suggestive of developing pneumonia. This document has been electronically signed by: Ej Birmingham MD on 06/07/2024 13:23:14
[2024-06-07 12:31] VITALS: BP 152/65; PULSE 100; RESP 26; TEMP 36.7; O2SAT 87; BMI 26.9
--- NOTE | 2024-06-07 12:31 | ED.GENADULT ---
HPI - General Adult General Chief complaint: Dyspnea Stated complaint: diff breathing Time Seen by Provider: 06/07/24 12:37 Source: patient and family Mode of arrival: ambulatory Limitations: no limitations History of Present Illness ED Provider: Maria Isabel Calloway APRN HPI narrative: 69-year-old male with a history of COPD who is on chronic 3LNC, hypertension, hyperlipidemia presents the ER with complaints of increasing shortness of breath for the last 5-6 days. Patient reports he initially had upper respiratory symptoms which has triggered his COPD. He has been increasing his oxygen at home but has only been able to few take 1-2 steps without developing pretty significant shortness of breath. He is afebrile. No chest pain. No lower extremity swelling. Related Data Home Medications ?Medication ?Instructions ?Recorded ?Confirmed albuterol sulfate 90 mcg/actuation 2 puff inhalation QID 02/08/21 11/24/22 aerosol inhaler amlodipine 10 mg tablet 10 mg PO DAILY 02/08/21 11/24/22 losartan 25 mg tablet 25 mg PO DAILY 02/08/21 11/24/22 montelukast 10 mg tablet 10 mg PO DAILY 02/08/21 11/24/22 colchicine 0.6 mg tablet 0.6 mg PO DAILY 07/27/21 11/24/22 atorvastatin 20 mg tablet 40 mg PO DAILY 01/16/23 fluticasone propionate 50 1 spray intranasal DAILY 01/16/23 mcg/actuation nasal spray,suspension Previous Rx's ?Medication ?Instructions ?Recorded azelastine 137 mcg (0.1 %) nasal 2 spray intranasal BID 30 days #30 01/17/24 spray mL budesonide-formoterol HFA 160 2 puff inhalation BID #10.2 ea 04/25/24 mcg-4.5 mcg/actuation aerosol inhaler (Symbicort) cefuroxime axetil 250 mg tablet 250 mg PO BID #14 tabs 06/07/24 doxycycline hyclate 100 mg tablet 100 mg PO BID #10 tabs 06/07/24 prednisone 20 mg tablet 60 mg (3 x 20 mg) PO DAILY #15 tabs 06/07/24 Allergies Allergy/AdvReac Type Severity Reaction Status Date / Time erythromycin base Allergy Intermediate Diarrhea Verified 06/07/24 12:33 [From Erythrocin] Review of Systems Review of Systems: Yes all other systems are reviewed and are negative Constitutional: Constitutional: Reports no additional constitutional complaints, Denies body ache(s), Denies chills, Denies fever(s), Denies headache(s) and Denies weakness Eyes: Eyes: Reports no additional eye complaints and Denies change in vision ENT: Reports system reviewed and no additional complaints, except as documented, Denies dizziness, Denies headache(s), Denies nasal congestion, Denies nasal discharge and Denies neck pain Cardiovascular: Cardiovascular: Reports no additional cardiovascular complaints, Denies chest pain, Denies leg edema and Reports dyspnea Respiratory: Respiratory: Reports no additional respiratory complaints, Reports cough and Reports dyspnea Gastrointestinal: Gastrointestinal: Reports no additional gastrointestinal complaints, Denies abdominal pain, Denies diarrhea, Denies nausea and Denies vomiting Genitourinary: Genitourinary: Denies urinary incontinence Musculoskeletal: Musculoskeletal: Reports no additional musculoskeletal complaints, Denies back pain, Denies arthralgias, Denies joint swelling, Denies neck pain, Denies numbness and Denies tingling Integumentary/Breasts: Skin/Breast: Reports system reviewed and no additional complaints, except as docu and Denies rash Neurologic: Reports system reviewed and no additional complaints, except as documented, Denies Abnormal speech present, Denies dizziness, Denies headache(s), Denies numbness, Denies tingling and Denies weakness PMFSH Past Medical History Attestation statement: The following information was validated with the patient. Source: old records reviewed and nursing notes reviewed Medical History O2 dependent Elevated PSA Gout Hyperlipidemia HTN (hypertension) COPD (chronic obstructive pulmonary disease) Asthma Elevated prostate specific antigen [PSA] Surgical History History of left knee surgery History of umbilical hernia repair History of appendectomy Social History Social History Patient Tobacco Use Status: Former Tobacco user Tobacco use type: Cigarette Advance Directives: No Advance Directives Information Provided: No Physical Exam ED Vital Signs: Vital Signs - 24 hr 06/07/24 12:31 06/07/24 12:48 06/07/24 14:18 Temperature 98.1 F 98 F Pulse Rate 100 87 89 Respiratory Rate 26 H 27 H 19 Blood Pressure 152/65 H 131/71 Pulse Oximetry 87 L 94 Oxygen Delivery Method Nasal Cannula Nasal Cannula Oxygen Flow Rate 3 BMI result Body Mass Index 26.9 Const General: cooperative, healthy appearing, comfortable and no acute distress Orientation/consciousness: patient oriented x3 Limitations: no limitations HENMT Head: Yes normal to inspection Ears: hearing grossly normal bilaterally General nose exam: Normal external nose present Face and sinus: Yes normal facial exam Mouth: Normal oral and palatal mucosa present Throat: Yes posterior oropharynx normal Eyes General: appearance normal, both eyes and all related structures Pupils: Equal, round and reactive pupils present Neck Neck: Yes normal visual inspection Chest Chest palpation & inspection: normal inspection of the chest Resp Other: Diminished breath sounds Effort & Inspection: tachypneic Cardio Rate: regular rate Rhythm: regular rhythm Peripheral pulses: Peripheral pulses 2+ throughout GI Inspection: Yes normal to inspection Palpation (GI): Soft to palpation and nontender Auscultation: normal bowel sounds Back/Spine/Pelvis Thoracic/Lumbar Spine: thoracic and lumbar spine normal to inspection Skin General skin exam: no rashes or lesions noted Neuro General: patient oriented x3, no focal motor deficits and normal sensation to monofilament Cranial nerves: Yes Equal, round and reactive pupils present Cognition (Neuro): normal cognition Speech: No Abnormal speech present Gait exam (Neuro): Normal gait present Motor exam (neuro): 5/5 motor strength present throughout Extrem General: Yes normal to inspection, Yes no pedal edema and Yes no calf tenderness Course Course Course Narrative: Medical screening exam performed. Please refer to detailed history, exam, evaluation, and management by primary provider. 69-year-old male history of COPD on 2 L recent URI symptoms, increased shortness of breath and dyspnea on exertion. Decreased lung sounds on exam. 87% on 3 L at rest, Orders placed, patient will be brought to a room. Medications Administered Discontinued Medications Generic Name Dose Route Start Last Admin Trade Name Freq PRN Reason Stop Dose Admin Ceftriaxone Sodium 2 gm 06/07/24 12:44 06/07/24 13:21 Ceftriaxone Sodium 2 Gm Vial IVPUSH 06/07/24 12:45 2 gm ONCE ONE Administration Albuterol Sulfate 7.5 mg/ 0 mg 06/07/24 12:47 06/07/24 12:55 Albuterol/Ipratropium 3 ml INHALE 06/07/24 12:48 10 each ONCE ONE Administration Doxycycline Monohydrate 100 mg 06/07/24 13:57 06/07/24 14:13 Doxycycline Monohydrate 100 Mg Capsule PO 06/07/24 13:58 100 mg ONCE ONE Administration Magnesium Sulfate 2 gm in 50 mls @ 25 mls/hr 06/07/24 12:44 06/07/24 13:16 Magnesium Sulfate/H2o IV 06/07/24 14:43 25 mls/hr ONCE ONE Administration Methylprednisolone Sodium Succinate 125 mg 06/07/24 12:44 06/07/24 13:16 Methylprednisolone Sod Succ 125 Mg/2 Ml Vial IVPUSH 06/07/24 12:45 125 mg ONCE ONE Administration Medical Decision Making Medical Decision Making [facility] Narrative: 69-year-old male with a history of COPD who is on chronic 3LNC, hypertension, hyperlipidemia presents the ER with complaints of increasing shortness of breath for the last 5-6 days. Patient reports he initially had upper respiratory symptoms which has triggered his COPD. He has been increasing his oxygen at home but has only been able to few take 1-2 steps without developing pretty significant shortness of breath. He is afebrile. No chest pain. No lower extremity swelling. On arrival patient's oxygen saturation is a psych from% on 3 L nasal cannula and he is quite tachypneic, speaking 1-2 words, pursed lip breathing, accessory muscle use. He will need labs, chest x-ray, EKG, viral testing At this time infection is suspected. Antibiotics ordered Differential Diagnosis Differential Diagnoses: The differential diagnosis associated with the presentation includes Viral syndrome, pneumonia, COPD exacerbation Admission/Observation Consideration of admission/observation: Escalation of care including admission/observation considered Patient has community-acquired pneumonia which is likely triggering his COPD. After treatment in the emergency room he was back at his baseline oxygen requirement. He feels much improved and would like to be discharged home. Lab Data [facility] Lab Attestation statement: I reviewed the patient's lab results. 06/07/24 12:59 06/07/24 12:58 Labs: Lab Results 06/07/24 06/07/24 06/07/24 Range/Units 12:58 12:58 12:58 WBC (4.8-10.8) X10*3/uL RBC (4.60-5.80) X10*6/uL Hgb (14.0-18.0) g/dl Hct (42.0-52.0) % MCV (80.0-98.0) fL MCH (27.0-33.0) pg MCHC (31.0-36.0) g/dl RDW (11.0-16.0) % Plt Count (160-400) X10*3/uL MPV (9.4-12.4) fL Immature Gran % (Auto) (0.0-0.4) % Neut % (Auto) (45-73) % Lymph % (Auto) (20-40) % Amador % (Auto) (2-11) % Eos % (Auto) (0-4) % Baso % (Auto) (0-2) % Lymph # (Auto) (1.2-4.9) X10*3/uL Amador # (Auto) (0.1-1.2) X10*3/uL Eos # (Auto) (0.0-0.4) X10*3/uL Baso # (Auto) (0.0-0.2) X10*3/uL Abs Immat Gran (auto) (0.00-0.03) X10*3/uL Absolute Neuts (auto) (2.0-8.3) x10*3/uL Absolute Nucleated RBC (0.0-0.012) X10*3/uL Nucleated RBC % (auto) (0.0-0.2) /100WBC VBG pH Cancelled VBG pCO2 Cancelled VBG pO2 Cancelled VBG HCO3 Cancelled VBG O2 Saturation Cancelled VBG Base Excess Cancelled Sodium 138 (135-145) mmol/L Potassium 4.2 (3.3-5.1) mmol/L Chloride 99 (96-108) mmol/L Carbon Dioxide 33 H (22-29) mmol/L Anion Gap 10 L (12-20) BUN 12 (9-16) mg/dL Creatinine 0.75 (0.5-1.4) mg/dL Estim Creat Clear Calc 87.4 Estimated GFR > 60 Random Glucose 120 H (60-115) mg/dL Lactic Acid 1.0 (0.5-2.0) mmol/L Calcium 9.7 (8.4-10.2) mg/dL Magnesium 1.9 Cancelled (1.6-2.6) mg/dL Total Bilirubin 0.7 Cancelled (0.0-1.0) mg/dL Direct Bilirubin 0.2 (0.0-0.5) mg/dL AST (5-37) U/L ALT (0-40) U/L Alkaline Phosphatase (39-117) U/L Troponin I High Sens (<3.5-35.0) ng/L B-Natriuretic Peptide (<100) pg/mL Total Protein (6.5-8.0) g/dL Albumin (3.5-5.0) g/dL Influenza Type A (PCR) (Negative) Influenza Type B (PCR) (Negative) RSV RNA Qual (PCR) (Negative) SARS-CoV-2 RNA (RT-PCR) (Negative) 06/07/24 06/07/24 06/07/24 Range/Units 12:58 12:58 12:58 WBC (4.8-10.8) X10*3/uL RBC (4.60-5.80) X10*6/uL Hgb (14.0-18.0) g/dl Hct (42.0-52.0) % MCV (80.0-98.0) fL MCH (27.0-33.0) pg MCHC (31.0-36.0) g/dl RDW (11.0-16.0) % Plt Count (160-400) X10*3/uL MPV (9.4-12.4) fL Immature Gran % (Auto) (0.0-0.4) % Neut % (Auto) (45-73) % Lymph % (Auto) (20-40) % Amador % (Auto) (2-11) % Eos % (Auto) (0-4) % Baso % (Auto) (0-2) % Lymph # (Auto) (1.2-4.9) X10*3/uL Amador # (Auto) (0.1-1.2) X10*3/uL Eos # (Auto) (0.0-0.4) X10*3/uL Baso # (Auto) (0.0-0.2) X10*3/uL Abs Immat Gran (auto) (0.00-0.03) X10*3/uL Absolute Neuts (auto) (2.0-8.3) x10*3/uL Absolute Nucleated RBC (0.0-0.012) X10*3/uL Nucleated RBC % (auto) (0.0-0.2) /100WBC VBG pH VBG pCO2 VBG pO2 VBG HCO3 VBG O2 Saturation VBG Base Excess Sodium (135-145) mmol/L Potassium (3.3-5.1) mmol/L Chloride (96-108) mmol/L Carbon Dioxide (22-29) mmol/L Anion Gap (12-20) BUN (9-16) mg/dL Creatinine (0.5-1.4) mg/dL Estim Creat Clear Calc Estimated GFR Random Glucose (60-115) mg/dL Lactic Acid (0.5-2.0) mmol/L Calcium (8.4-10.2) mg/dL Magnesium (1.6-2.6) mg/dL Total Bilirubin (0.0-1.0) mg/dL Direct Bilirubin Cancelled (0.0-0.5) mg/dL AST 31 Cancelled (5-37) U/L ALT 35 Cancelled (0-40) U/L Alkaline Phosphatase 62 (39-117) U/L Troponin I High Sens (<3.5-35.0) ng/L B-Natriuretic Peptide (<100) pg/mL Total Protein (6.5-8.0) g/dL Albumin (3.5-5.0) g/dL Influenza Type A (PCR) (Negative) Influenza Type B (PCR) (Negative) RSV RNA Qual (PCR) (Negative) SARS-CoV-2 RNA (RT-PCR) (Negative) 06/07/24 06/07/24 06/07/24 Range/Units 12:58 12:58 12:58 WBC (4.8-10.8) X10*3/uL RBC (4.60-5.80) X10*6/uL Hgb (14.0-18.0) g/dl Hct (42.0-52.0) % MCV (80.0-98.0) fL MCH (27.0-33.0) pg MCHC (31.0-36.0) g/dl RDW (11.0-16.0) % Plt Count (160-400) X10*3/uL MPV (9.4-12.4) fL Immature Gran % (Auto) (0.0-0.4) % Neut % (Auto) (45-73) % Lymph % (Auto) (20-40) % Amador % (Auto) (2-11) % Eos % (Auto) (0-4) % Baso % (Auto) (0-2) % Lymph # (Auto) (1.2-4.9) X10*3/uL Amador # (Auto) (0.1-1.2) X10*3/uL Eos # (Auto) (0.0-0.4) X10*3/uL Baso # (Auto) (0.0-0.2) X10*3/uL Abs Immat Gran (auto) (0.00-0.03) X10*3/uL Absolute Neuts (auto) (2.0-8.3) x10*3/uL Absolute Nucleated RBC (0.0-0.012) X10*3/uL Nucleated RBC % (auto) (0.0-0.2) /100WBC VBG pH VBG pCO2 VBG pO2 VBG HCO3 VBG O2 Saturation VBG Base Excess Sodium (135-145) mmol/L Potassium (3.3-5.1) mmol/L Chloride (96-108) mmol/L Carbon Dioxide (22-29) mmol/L Anion Gap (12-20) BUN (9-16) mg/dL Creatinine (0.5-1.4) mg/dL Estim Creat Clear Calc Estimated GFR Random Glucose (60-115) mg/dL Lactic Acid (0.5-2.0) mmol/L Calcium (8.4-10.2) mg/dL Magnesium (1.6-2.6) mg/dL Total Bilirubin (0.0-1.0) mg/dL Direct Bilirubin (0.0-0.5) mg/dL AST (5-37) U/L ALT (0-40) U/L Alkaline Phosphatase Cancelled (39-117) U/L Troponin I High Sens < 2.7 (<3.5-35.0) ng/L B-Natriuretic Peptide (<100) pg/mL Total Protein 8.2 H Cancelled (6.5-8.0) g/dL Albumin 4.5 Cancelled (3.5-5.0) g/dL Influenza Type A (PCR) NEGATIVE (Negative) Influenza Type B (PCR) NEGATIVE (Negative) RSV RNA Qual (PCR) NEGATIVE (Negative) SARS-CoV-2 RNA (RT-PCR) NEGATIVE (Negative) 06/07/24 06/07/24 Range/Units 12:59 13:07 WBC 7.2 (4.8-10.8) X10*3/uL RBC 4.98 (4.60-5.80) X10*6/uL Hgb 14.0 (14.0-18.0) g/dl Hct 40.7 L (42.0-52.0) % MCV 81.7 (80.0-98.0) fL MCH 28.1 (27.0-33.0) pg MCHC 34.4 (31.0-36.0) g/dl RDW 12.8 (11.0-16.0) % Plt Count 225 (160-400) X10*3/uL MPV 8.7 L (9.4-12.4) fL Immature Gran % (Auto) 0.3 (0.0-0.4) % Neut % (Auto) 68.2 (45-73) % Lymph % (Auto) 21.3 (20-40) % Amador % (Auto) 8.3 (2-11) % Eos % (Auto) 1.3 (0-4) % Baso % (Auto) 0.6 (0-2) % Lymph # (Auto) 1.5 (1.2-4.9) X10*3/uL Amador # (Auto) 0.6 (0.1-1.2) X10*3/uL Eos # (Auto) 0.1 (0.0-0.4) X10*3/uL Baso # (Auto) 0.0 (0.0-0.2) X10*3/uL Abs Immat Gran (auto) 0.02 (0.00-0.03) X10*3/uL Absolute Neuts (auto) 4.9 (2.0-8.3) x10*3/uL Absolute Nucleated RBC 0.000 (0.0-0.012) X10*3/uL Nucleated RBC % (auto) 0.0 (0.0-0.2) /100WBC VBG pH 7.40 VBG pCO2 57 VBG pO2 43 VBG HCO3 36 H VBG O2 Saturation 70.0 VBG Base Excess 9.6 Sodium (135-145) mmol/L Potassium (3.3-5.1) mmol/L Chloride (96-108) mmol/L Carbon Dioxide (22-29) mmol/L Anion Gap (12-20) BUN (9-16) mg/dL Creatinine (0.5-1.4) mg/dL Estim Creat Clear Calc Estimated GFR Random Glucose (60-115) mg/dL Lactic Acid (0.5-2.0) mmol/L Calcium (8.4-10.2) mg/dL Magnesium (1.6-2.6) mg/dL Total Bilirubin (0.0-1.0) mg/dL Direct Bilirubin (0.0-0.5) mg/dL AST (5-37) U/L ALT (0-40) U/L Alkaline Phosphatase (39-117) U/L Troponin I High Sens (<3.5-35.0) ng/L B-Natriuretic Peptide 14 (<100) pg/mL Total Protein (6.5-8.0) g/dL Albumin (3.5-5.0) g/dL Influenza Type A (PCR) (Negative) Influenza Type B (PCR) (Negative) RSV RNA Qual (PCR) (Negative) SARS-CoV-2 RNA (RT-PCR) (Negative) Independent Interpretation I performed an independent interpretation of an: EKG and Plain X-Ray Interpretation: I independently viewed the x-ray and agree with the radiology report Radiology Impression Discussion of test interpretation with radiology: I have reviewed the radiologist's reading. Radiologist Impression: [address] [address] XRay Report Signed Patient: Bharat Fuentes MR#: [id number] : 1955 Acct:[id number] Age/Sex: 69 / M ADM Date: 06/07/24 Loc: .ED Attending Dr: Ordering Physician: Daniel Lynn Date of Service: 06/07/24 Procedure(s): XR chest 1V Accession Number(s): [id number] cc: QUINTEN MOSLEY LOG CHIPPER; Daniel Lynn~ CLINICAL HISTORY: shortness of breath, copd Single view of the chest. COMPARISON: None FINDINGS: Normal heart and mediastinal contours. Hazy right basilar airspace opacities. No pleural effusion or pneumothorax. No fracture identified. IMPRESSION: 1. Hazy right basilar pulmonary opacities suggestive of developing pneumonia. Independent Historian Clinical information obtained from an independent historian. History obtained from or confirmed by: Spouse Discharge Plan Discharge Clinical Impression: Community acquired pneumonia Patient Disposition: Home, Self-Care Instructions: Community Acquired Pneumonia (ED) Additional Instructions: Start your antibiotic and prednisone tomorrow Continue your home treatment Return for any worsening symptoms Your test for flu, COVID and RSV are negative Your x-ray shows a pneumonia in the right upper lobe Prescriptions: New cefuroxime axetil 250 mg tablet 250 mg PO BID Qty: 14 0RF doxycycline hyclate 100 mg tablet 100 mg PO BID Qty: 10 0RF prednisone 20 mg tablet 60 mg PO DAILY Qty: 15 0RF No Action budesonide-formoterol [Symbicort] 160-4.5 mcg/actuation HFA aerosol inhaler 2 puff inhalation BID Qty: 10.2 6RF colchicine 0.6 mg Tablet 0.6 mg PO DAILY losartan 25 mg tablet 25 mg PO DAILY amlodipine 10 mg tablet 10 mg PO DAILY albuterol sulfate 90 mcg/actuation HFA aerosol inhaler 2 puff inhalation QID montelukast 10 mg tablet 10 mg PO DAILY atorvastatin 20 mg tablet 40 mg PO DAILY fluticasone propionate 50 mcg/actuation spray,suspension 1 spray intranasal DAILY Rx Instructions: administer into each nostril azelastine 137 mcg (0.1 %) spray,non-aerosol 2 spray intranasal BID 30 Days Qty: 30 6RF Rx Instructions: administer into each nostril Referrals: Quinten Mosley LOG CHIPPER [Primary Care Provider] - 1 week Interventions: ED Discharge Assessment Last Done: 06/07/24 14:18 Discharge Date/Time: 06/07/24 14:19 Print Language: Upper Sorbian
[2024-06-07 12:48] VITALS: PULSE 87; RESP 27; O2SAT 94
[2024-06-07] MEDS: Albuterol Sulfate 7.5 MG, Albuterol/Iprat 2.5/0.5MG 3 ML 3 ML INHALE (12:55)
[2024-06-07 13:04] LABS: MANUAL DIFF FLAG NO
[2024-06-07 13:06] LABS: Basophils Percent Auto 0.6 % (0-2); Eosinophils Absolute Auto 0.1 X10*3/uL (0.0-0.4); Eosinophils Percent Auto 1.3 % (0-4); Hematocrit 40.7 % (42.0-52.0); Imm Gran Abs Auto 0.02 X10*3/uL (0.00-0.03); Imm Gran Pct Auto 0.3 % (0.0-0.4); Lymphocytes Absolute Auto 1.5 X10*3/uL (1.2-4.9); Lymphocytes Percent Auto 21.3 % (20-40); Mean Corpuscular HGB Conc 34.4 g/dl (31.0-36.0); Mean Corpuscular Hemoglobin 28.1 pg (27.0-33.0); Mean Corpuscular Volume 81.7 fL (80.0-98.0); Mean Platelet Volume 8.7 fL (9.4-12.4); Monocytes Absolute Auto 0.6 X10*3/uL (0.1-1.2); Monocytes Percent Auto 8.3 % (2-11); Neutrophils Absolute Auto 4.9 x10*3/uL (2.0-8.3); Neutrophils Percent Auto 68.2 % (45-73); Platelet Count 225 X10*3/uL (160-400); Red Blood Count 4.98 X10*6/uL (4.60-5.80); Red Cell Distribution Width 12.8 % (11.0-16.0); White Blood Count 7.2 X10*3/uL (4.8-10.8)
[2024-06-07 13:14] LABS: Venous Blood Gas Refer to POC result
[2024-06-07 13:14] LABS: VBG Base Excess 9.6 mmol/L; VBG HCO3 36 mmol/L (22-26); VBG pCO2 57 mmHg; VBG pO2 43 mmHg
[2024-06-07] MEDS: Magnesium Sulfate/H2O 2 GM/50 ML PIGGYBACK IV (13:16)
[2024-06-07] MEDS: methylPREDNISolone Sod Succ 125 MG/2 ML VIAL IVPUSH (13:16)
[2024-06-07] MEDS: cefTRIAXone sodium 2 GM VIAL IVPUSH (13:21)
[2024-06-07 13:24] LABS: Alanine Aminotransferase 35 U/L (0-40); Albumin Level 4.5 g/dL (3.5-5.0); Alkaline Phosphatase 62 U/L (39-117); Anion Gap 10 (12-20); Aspartate Amino Transferase 31 U/L (5-37); Bilirubin Direct 0.2 mg/dL (0.0-0.5); Bilirubin Total 0.7 mg/dL (0.0-1.0); Blood Urea Nitrogen 12 mg/dL (9-16); Calcium 9.7 mg/dL (8.4-10.2); Carbon Dioxide 33 mmol/L (22-29); Chloride 99 mmol/L (96-108); Creatinine Clr Calc Pharmacy 87.4; Estimated Glomerular Filt Rate > 60; Glucose Random 120 mg/dL (60-115); Magnesium 1.9 mg/dL (1.6-2.6); Potassium 4.2 mmol/L (3.3-5.1); Sodium 138 mmol/L (135-145); Total Protein 8.2 g/dL (6.5-8.0)
[2024-06-07 13:26] LABS: B Type Natriuretic Peptide 14 pg/mL (<100)
[2024-06-07 13:31] LABS: Troponin-I High Sensitivity < 2.7 ng/L (<3.5-35.0)
[2024-06-07 13:47] LABS: Influenza A PCR NEGATIVE (Negative); Influenza B PCR NEGATIVE (Negative); Resp Syncy Virus RNA Qual PCR NEGATIVE (Negative); SARS COV2 PCR INHOUSE NEGATIVE (Negative)
[2024-06-07] MEDS: Doxycycline Monohydrate 100 MG CAPSULE PO (14:13)
[2024-06-07 14:18] VITALS: BP 131/71; PULSE 89; RESP 19; TEMP 36.6; O2SAT 94
== END 2024-06-07 14:19 | disposition home or self-care (01) ==
PROVIDERS: Nurse Practitioner Family; Physician Assistant; Emergency Provider Internal Medicine; PCP Nurse Practitioner Family
DX: J18.9 Pneumonia, unspecified organism (principal); R06.02 Shortness of breath; Z79.899 Other long term (current) drug therapy; Z87.891 Personal history of nicotine dependence; Z03.818 Encounter for observation for suspected exposure to other biological agents ruled out
CPT/HCPCS: 0241U; 36415; 71045; 80048; 80076; 82803; 83605; 83735; 83880; 84484; 85025; 87040; 94640; 96374; 96375; 99283; 99284; J0696; J2919; J3475

== ENCOUNTER → 2024-06-07 12:31 | Outpatient (BNV) | payer OTHER, SELFPAY | PROVIDERS: Emergency Provider Internal Medicine; PCP Nurse Practitioner Family; Visit Provider Radiology Diagnostic Radiology | DX: R91.8 Other nonspecific abnormal finding of lung field (principal) | CPT/HCPCS: 71045 ==

== ENCOUNTER 2024-07-23 13:58 | Outpatient (AMB) | payer OTHER, SELFPAY ==
[2024-07-23 14:01] VITALS: BP 140/64; PULSE 100; O2SAT 94; BMI 27.1
--- NOTE | 2024-07-23 14:01 | MHC.OFFVIS ---
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 He has been using Symbicort, Spiriva, and albuterol MDI with good control of his symptoms. He continues on azelastine with good control of his underlying allergies. He denies any recent exacerbations of his underlying COPD. [facility] Medical History O2 dependent Elevated PSA Gout Hyperlipidemia HTN (hypertension) COPD (chronic obstructive pulmonary disease) Asthma Elevated prostate specific antigen [PSA] Surgical History History of left knee surgery History of umbilical hernia repair History of appendectomy Social History Patient Tobacco Use Status: Former Tobacco user Tobacco use type: Cigarette Review of Systems Const Denies daytime sleepiness, Denies excessive sweating, Denies fatigue, Denies fever(s), Denies lethargy, Denies malaise, Denies night sweats, Denies snoring and Denies weight loss Eyes Denies blurry vision and Denies itchy eyes ENT Denies nasal congestion, Denies post nasal drip, Denies sinus pain, Denies sinus pressure and Denies other ( Thrush) Card Denies chest pain, Denies pedal edema, Denies dyspnea, Denies orthopnea and Denies paroxysmal nocturnal dyspnea Resp Denies cough, Denies hemoptysis, Denies excessive phlegm production, Denies dyspnea, Denies snoring and Denies wheezing GI Denies abdominal pain and Denies heartburn Musc Denies myalgias, Denies arthralgias and Denies joint swelling Skin/Breast Denies rash Neuro Denies memory loss and Denies seizure-like activity Psych Denies abnormal sleep pattern, Denies anxiety and Denies memory loss Endo Denies excessive sweating, Denies fatigue and Denies heat intolerance Dominick/Lymph Denies easy bruising Aller/Immun Denies itchy eyes, Denies seasonal rhinorrhea and Denies wheezing Physical Exam Vital Signs: Last Vital Signs Pulse 100 07/23/24 14:01 BP 140/64 H 07/23/24 14:01 Pulse Ox 94 07/23/24 14:01 Oxygen Delivery Method Nasal Cannula 07/23/24 14:01 Oxygen Flow Rate 4.5 07/23/24 14:01 BMI result Body Mass Index 27.1 Const General: no acute distress and alert Nutritional Appearance: not obese Orientation/consciousness: Other orientation findings ( oriented) HEENT Head: Yes atraumatic Eyes General: appearance normal, both eyes and all related structures Sclerae: sclerae normal EOM: EOMs intact bilaterally Neck Neck: Yes supple Lymphatic: no lymphadenopathy noted Resp Effort & Inspection: normal respiratory effort and no use of accessory muscles Auscultation: clear to auscultation bilaterally Cardio Rate: regular rate Rhythm: regular rhythm Heart sounds: no gallops, no murmurs and no rubs Skin General skin exam: other ( warm) Extrem General: No clubbing, No cyanosis and No edema Assessment & Plan Assessment & Plan (1) COPD (chronic obstructive pulmonary disease): Code(s): J44.9 - Chronic obstructive pulmonary disease, unspecified Category: Medical Plan: Well controlled on current regimen of Symbicort, Spiriva, and albuterol MDI. Continue current regimen. (2) Supplemental oxygen dependent: Code(s): Z99.81 - Dependence on supplemental oxygen Category: Medical Plan: Continue supplemental oxygen to maintain O2 saturation of 88-93%. (3) Environmental allergies: Code(s): Z91.09 - Other allergy status, other than to drugs and biological substances Category: Medical Plan: Reasonable control on azelastine and Zyrtec. Continue current regimen. Coding Level of Care Code Est Pt Level 4 (11366) Complex EM visit Add On G2211 Diagnoses COPD (chronic obstructive pulmonary disease) J44.9 Supplemental oxygen dependent Z99.81 Environmental allergies Z91.09
--- OUTSIDE RECORDS SUMMARY | 2024-07-23 14:03 | XMS_ITS | Patient Health Record ---
Author Organization [facility] Address [address] [place] [address] Care Team Providers Care Service Mechanic Name Role Phone Dimitri CORDOBA, Quinten Primary Care Provider Genaro Squires Jr Unavailable [phone] Allergies Allergen (clinical drug ingredient) Drug/Non Drug Allergy documented on EMR Reaction Allergy Type Onset Date Status Seasonal IC Unknown Drug Allergy Activ e erythromycin Erythromycin Unknown Drug Allergy A ctive Reason For Referral No Information Medications Medication SIG (Take, Route, Frequency, Duration) Notes Start Date End Date Status amLODIPine Besylate 10 MG 1 tablet Orall y Once a day for 30 day(s) Active Atorvastatin Calcium 20 MG 1 tablet Oral ly Once a day for 30 day(s) Active Losartan Potassium 25 MG 1 tablet Orally Once a day for 30 day(s) Active Wixela Inhub 100-50 MCG/DOSE 1 puff Inhalation Twice a day Active Montelukast Sodium 10 MG 1 tablet Orally Once a day for 30 day(s) Active MiraLax (colon prep) 17 GM/SCOOP mixed with Gatorade or Crystal Light Orally begin at 5:00 p.m. the day before the procedure for 1 day 07/06/2021 Active Albuterol Active Spiriva HandiHaler 18 MCG 1 capsule by i nhaling the contents of the capsule using the HandiHaler device Inhalation Once a day Active Colchicine Active Immunizations Vaccine Route Administration Date Status Comme nts Influenza Unknown 01/26/2021 Administered Social History Tobacco Use: Social History Observation Description Date Details (start date - stop date) Never Smoker NA - NA Tobacco Use/Smoking Question Answer Notes Patient is a nonsmoker Alcohol Screen Question Answer Notes Did you have a drink contain ing alcohol in the past year? Yes How often did you have a dri nk containing alcohol in the past year? 4 or more times a week (4 points) How many drinks did you have on a typical day when you were drinking in the past year? 3 or 4 drinks (1 point) How often did you have 6 or more drinks on one occasion in the past year? Less than monthly (1 point) Points 6 Interpretation Positive Problems Problem Type SNOMED Code ICD Code Onset Dates Problem Status W/U Status Risk Notes Problem 211245591 Colon cancer screening (Z12.11) Active confirmed Problem 860845705 Encounter for other preprocedural examination (Z01.818) Active confirmed Plan Of Treatment Future Test Test Name Order Date COLONOSCOPY 07/06/2021 Next Appt Details Provider Name:Genaro echeverria , 09/29/2024 10:20:00 AM, [address] [place] [address], [facility] [address], [place], [address], Insurance Providers Payer Name Payer Address Payer Phone Subscriber Number Group Number Insured Name Patient Relationship to Insured Coverage Start Date Coverage End Date [facility] [employer] [address] [place] [id number] GERARDO HAYES Self - patient is the insured Medical (General) History Medical History History ICD Code Asthma/COPD Hypertension Hyperlipidemia Gout Elevated PSA Surgical History Surgery Date(Month/Year) appendix 1967 umbilical hernia 1979 left knee 1989
== END 2024-07-23 14:22 | disposition home or self-care (01) ==
LOC: HO.HPS 13:59
PROVIDERS: PCP Nurse Practitioner Family; Visit Provider Internal Medicine Pulmonary Disease
DX: J44.9 Chronic obstructive pulmonary disease, unspecified (principal); Z99.81 Dependence on supplemental oxygen; Z91.09 Other allergy status, other than to drugs and biological substances
CPT/HCPCS: 99214; G2211

== ENCOUNTER → 2024-07-23 13:58 | Outpatient (BNVA) | payer OTHER, SELFPAY | PROVIDERS: PCP Nurse Practitioner Family; Visit Provider Internal Medicine Pulmonary Disease | DX: J44.89 Other specified chronic obstructive pulmonary disease (principal); Z99.81 Dependence on supplemental oxygen; Z91.09 Other allergy status, other than to drugs and biological substances; Z87.891 Personal history of nicotine dependence | CPT/HCPCS: 99212 ==

== ENCOUNTER 2024-10-15 14:10 | Outpatient (AMB) | payer OTHER, SELFPAY ==
[2024-10-15 14:15] VITALS: BP 138/58; PULSE 93; O2SAT 97; BMI 27.5
--- NOTE | 2024-10-15 14:15 | A.OFFVIS_ITS ---
Vital Signs 10/15/24 14:15 Height 5 ft 8 in Weight 181 lb BMI 27.5 BP 138/58 L Blood Pressure Location Lt brachial Position Sitting Pulse 93 Pulse Source Pulse Oximeter Pulse Oximetry (%) 97 Oxygen Delivery Method Nasal Cannula Oxygen Flow Rate 3 Intake Visit Reasons: COPD/Colonoscopy (Dr. Oquendo 10/22) HPI HPI COPD/Colonoscopy (Dr. Oquendo 10/22): Details: 69-year-old gentleman, former 30+ pack-year smoker, quit 2006, followed for severe supplemental oxygen 3-4 L continuous flow dependent asthma/COPD overlap syndrome. He has been using Symbicort, Spiriva, and albuterol MDI with good control of his symptoms. He continues on azelastine with good control of his underlying allergies. He denies any recent exacerbations of his underlying COPD. He is planned for colonoscopy next week. [facility] Medical History (Updated 10/15/24 @ 14:32 by Donovan De Paz MD) Hx of sigmoidoscopy Arthritis GERD (gastroesophageal reflux disease) Numbness Pneumonia URI, acute Habitual snoring Bronchitis O2 dependent Elevated PSA Gout Hyperlipidemia HTN (hypertension) COPD (chronic obstructive pulmonary disease) Asthma Elevated prostate specific antigen [PSA] Surgical History (Updated 10/14/24 @ 11:06 by Savi Tolliver RN) H/O colonoscopy History of left knee surgery History of umbilical hernia repair History of appendectomy Social History Are you a primary palliative care specialist to a significant other at home: No Do you presently have visiting nurse or other home services: Yes (oxygen) Patient Tobacco Use Status: Former Tobacco user Tobacco use type: Cigarette Review of Systems Const Denies daytime sleepiness, Denies excessive sweating, Denies fatigue, Denies fever(s), Denies lethargy, Denies malaise, Denies night sweats, Denies snoring and Denies weight loss Eyes Denies blurry vision and Denies itchy eyes ENT Denies nasal congestion, Denies post nasal drip, Denies sinus pain, Denies sinus pressure and Denies other ( Thrush) Card Denies chest pain, Denies pedal edema, Denies dyspnea, Denies orthopnea and Denies paroxysmal nocturnal dyspnea Resp Denies cough, Denies hemoptysis, Denies excessive phlegm production, Denies dyspnea, Denies snoring and Denies wheezing GI Denies abdominal pain and Denies heartburn Musc Denies myalgias, Denies arthralgias and Denies joint swelling Skin/Breast Denies rash Neuro Denies memory loss and Denies seizure-like activity Psych Denies abnormal sleep pattern, Denies anxiety and Denies memory loss Endo Denies excessive sweating, Denies fatigue and Denies heat intolerance Dominick/Lymph Denies easy bruising Aller/Immun Denies itchy eyes, Denies seasonal rhinorrhea and Denies wheezing Physical Exam Vital Signs: Last Vital Signs Pulse 93 10/15/24 14:15 BP 138/58 L 10/15/24 14:15 Pulse Ox 97 10/15/24 14:15 Oxygen Delivery Method Nasal Cannula 10/15/24 14:15 Oxygen Flow Rate 3 10/15/24 14:15 BMI result Body Mass Index 27.5 Const General: no acute distress and alert Nutritional Appearance: not obese Orientation/consciousness: Other orientation findings ( oriented) HEENT Head: Yes atraumatic Eyes General: appearance normal, both eyes and all related structures Sclerae: sclerae normal EOM: EOMs intact bilaterally Neck Neck: Yes supple Lymphatic: no lymphadenopathy noted Resp Effort & Inspection: normal respiratory effort and no use of accessory muscles Auscultation: clear to auscultation bilaterally Cardio Rate: regular rate Rhythm: regular rhythm Heart sounds: no gallops, no murmurs and no rubs Skin General skin exam: other ( warm) Extrem General: No clubbing, No cyanosis and No edema Assessment & Plan Assessment & Plan (1) COPD (chronic obstructive pulmonary disease): Code(s): J44.9 - Chronic obstructive pulmonary disease, unspecified Category: Medical Plan: Well controlled on current regimen of Symbicort, Spiriva, and albuterol MDI. Continue current regimen. (2) Supplemental oxygen dependent: Code(s): Z99.81 - Dependence on supplemental oxygen Category: Medical Plan: Continue supplemental oxygen to maintain O2 saturation of 89-93%. (3) Environmental allergies: Code(s): Z91.09 - Other allergy status, other than to drugs and biological substances Category: Medical Plan: Reasonable control on azelastine. Will add nasal tiotropium. (4) Encounter for preoperative pulmonary examination: Code(s): Z01.811 - Encounter for preprocedural respiratory examination Category: Medical Plan: At this time patient is at low risk for pulmonary perioperative complications for the proposed colonoscopy either under general anesthesia, or monitored anesthesia care. Coding Level of Care Code Est Pt Level 4 (91564) Complex EM visit Add On G2211 Diagnoses COPD (chronic obstructive pulmonary disease) J44.9 Supplemental oxygen dependent Z99.81 Environmental allergies Z91.09 Encounter for preoperative pulmonary examination Z01.811
--- OUTSIDE RECORDS SUMMARY | 2024-10-15 14:43 | XMS_ITS | Patient Health Record ---
Author Organization [facility] Address [address] [place] [address] Care Team Providers Care Asset Recovery Specialist Name Role Phone Dimitri CORDOBA, Quinten Primary Care Provider Genaro Squires Jr Unavailable Allergies Allergen (clinical drug ingredient) Drug/Non Drug Allergy documented on EMR Reaction Allergy Type Onset Date Status Seasonal IC Unknown Drug Allergy Activ e erythromycin Erythromycin Unknown Drug Allergy A ctive Reason For Referral Referring Provider First Name Quinten Referring Provider Last Name Dimitri Referred Organization [facility] Referred Provider Genaro Oquendo Jr Referred Address [address] [facility],[place], [place],[address], Referred Provider Specialty Gastroentero logy Referral Priority [...] Problem Status W/U Status Risk Notes Problem 380719370 Colon cancer screening (Z12.11) Active confirmed Problem 795722938 Encounter for other preprocedural examination (Z01.818) Active confirmed Vital Signs Temperature 98.1 degrees Fahrenheit 09/29/2024 Blood pressure diastolic 01 mm Hg 09/29/2024 Height 68 in 09/29/2024 Blood pressure systolic 001 mm Hg 09/29/2024 Weight 178 lbs 09/29/2024 BMI 27.06 kg/m2 09/29/2024 Encounters Encounter Location Date Provider Diagnosis [facility] [address] [place] [address] 09/29/2024 Genaro Oquendo Jr Colon cancer screening Z12.11 and Encounter for other preprocedural examination Z01.[address] [facility] [address] [place] [address] 09/30/2024 Genaro Oquendo Jr Assessments Encounter Date Diagnosis (ICD Code) Assessment Notes Treatment Notes Treatment Clinical Notes Section Notes 09/29/2024 Colon cancer screening (ICD-10 - Z12.11) We discussed colonoscopy today. We discussed risks and benefits of the procedure today. He understands these and agrees to proceed. This will be scheduled at his convenience. Because of his underlying lung disease, we have recommended further evaluation with preop anesthesia testing. Of note he did quite well with his last colonoscopy with monitored anesthesia care. We reviewed this in detail today. 09/29/2024 Encounter for other preprocedural examination (ICD-10 - Z01.818) We discussed colonoscopy today. We discussed risks and benefits of the procedure today. He understands these and agrees to proceed. This will be scheduled at his convenience. Because of his underlying lung disease, we have recommended further evaluation with preop anesthesia testing. Of note he did quite well with his last colonoscopy with monitored anesthesia care. We reviewed this in detail today. Plan Of Treatment Future Test Test Name Order Date COLONOSCOPY 07/06/2021 COLONOSCOPY 09/29/2024 Next Appt Details Provider Name:Genaro Kaity echeverria , 10/22/2024 01:00:00 PM, [address] [place] [address] , [place], [place], [phone], Insurance Providers Payer Name Payer Address Payer Phone Subscriber Number Group Number Insured Name Patient Relationship to Insured Coverage Start Date Coverage End Date [facility] [employer] [address] [place] [id number] GERARDO HAYES Self - patient is the insured Medical (General) History Medical History History ICD Code Asthma/COPD Hypertension Hyperlipidemia Gout Elevated PSA Colonoscopy 07/31, multiple adenomas, 3-y ear follow-up Surgical History Surgery Date(Month/Year) left knee 1989 umbilical hernia 1979 appendix 1967
--- OUTSIDE RECORDS SUMMARY | 2024-10-15 14:43 | XMS_ITS ---
Author Name [facility] Organization [facility] Care Team Organization Name Specialty Phone Email Start Date End Da te [facility] 07/17/2022
== END 2024-10-15 14:31 | disposition home or self-care (01) ==
LOC: HO.HPS 14:10
PROVIDERS: PCP Nurse Practitioner Family; Referring Provider Internal Medicine Pulmonary Disease; Visit Provider Internal Medicine Pulmonary Disease
DX: J44.9 Chronic obstructive pulmonary disease, unspecified (principal); Z99.81 Dependence on supplemental oxygen; Z91.09 Other allergy status, other than to drugs and biological substances; Z01.811 Encounter for preprocedural respiratory examination
CPT/HCPCS: 99214; G2211

== ENCOUNTER → 2024-10-15 14:10 | Outpatient (BNVA) | payer OTHER, SELFPAY | PROVIDERS: PCP Nurse Practitioner Family; Visit Provider Internal Medicine Pulmonary Disease | DX: Z01.811 Encounter for preprocedural respiratory examination (principal); J44.9 Chronic obstructive pulmonary disease, unspecified; Z91.09 Other allergy status, other than to drugs and biological substances; Z99.81 Dependence on supplemental oxygen | CPT/HCPCS: 99212 ==

== ENCOUNTER 2024-10-22 12:04 | Day surgery (SDC) | payer OTHER, SELFPAY ==
--- OUTSIDE RECORDS SUMMARY | 2024-09-29 12:38 | XMS_ITS | Patient Health Record ---
Author Organization [facility] Address [address] [place] [address] Care Team Providers Care Apartment Rental Clerk Name Role Phone Dimitri CORDOBA, Quinten Primary Care Provider Genaro Squires Jr Unavailable [phone] Allergies Allergen (clinical drug ingredient) Drug/Non Drug Allergy documented on EMR Reaction Allergy Type Onset Date Status Seasonal IC Unknown Drug Allergy Activ e erythromycin Erythromycin Unknown Drug Allergy A ctive Reason For Referral Referring Provider First Name Quinten Referring Provider Last Name Dimitri Referred Organization [facility] Referred Provider Genaro Oquendo Jr Referred Address [address] [facility],[place], [place],[address], Referred Provider Specialty Gastroentero logy Referral Priority Routine Medications Medication SIG (Take, Route, Frequency, Duration) Notes Start Date End Date Status Losartan Potassium 25 MG 1 tablet Orally Once a day for 30 day(s) Active amLODIPine Besylate 10 MG 1 tablet Orall y Once a day for 30 day(s) Active Azelastine HCl 137 MCG/SPRAY 2 puffs (1 spray in each nostril) Nasally Twice a day Active Lumigan 0.01 % 1 drop into affected eye in the evening Ophthalmic Once a day Active Symbicort 160-4.5 MCG/ACT as directed Inhalation Active Colchicine Active Albuterol Active Spiriva HandiHaler 18 MCG 1 capsule by i nhaling the contents of the capsule using the HandiHaler device Inhalation Once a day Active Wixela Inhub 100-50 MCG/DOSE 1 puff Inhalation Twice a day Active Montelukast Sodium 10 MG 1 tablet Orally Once a day for 30 day(s) Active Atorvastatin Calcium 40 MG 1 tablet Oral ly Once a day for 30 days Active Immunizations Vaccine Route Administration Date Status Comme nts Influenza Unknown 01/26/2021 Administered Influenza Unknown 01/01/2024 Administered Social History Tobacco Use: Social History [...] Problem Status W/U Status Risk Notes Problem [id number] Colon cancer screening (Z12.11) Active confirmed Problem [id number] Encounter for other preprocedural examination (Z01.818) Active confirmed Vital Signs Temperature 98.1 degrees Fahrenheit 09/29/2024 Blood pressure diastolic 01 mm Hg 09/29/2024 Height 68 in 09/29/2024 Blood pressure systolic 001 mm Hg 09/29/2024 Weight 178 lbs 09/29/2024 BMI 27.06 kg/m2 09/29/2024 Encounters Encounter Location Date Provider Diagnosis [facility] [address] [facility] [address] [place] [address] 09/29/2024 Genaro Oquendo Jr Colon cancer screening Z12.11 and Encounter for other preprocedural examination Z01.818 Assessments Encounter Date Diagnosis (ICD Code) Assessment Notes Treatment Notes Treatment Clinical Notes Section Notes 09/29/2024 Colon cancer screening (ICD-10 - Z12.11) 09/29/2024 Encounter for other preprocedural examination (ICD-10 - Z01.818) Plan Of Treatment Future Test Test Name Order Date COLONOSCOPY 07/06/2021 COLONOSCOPY 09/29/2024 Next Appt Details Provider Name:Genaro echeverria Jr, 10/22/2024 01:00:00 PM, [address] [facility] , [place], [place], [id number], Insurance Providers Payer Name Payer Address Payer Phone Subscriber Number Group Number Insured Name Patient Relationship to Insured Coverage Start Date Coverage End Date [facility] [employer] [address] [place] [address] [id number] GERARDO HAYSE Self - patient is the insured Medical (General) History Medical History History ICD Code Asthma/COPD Hypertension Hyperlipidemia Gout Elevated PSA Surgical History Surgery Date(Month/Year) left knee 1989 umbilical hernia 1979 appendix 1967
[2024-10-15 13:33] VITALS: BP 141/65; PULSE 87; RESP 16; O2SAT 94; BMI 27.8
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
--- NOTE | 2024-10-22 11:56 | MHC.SHP ---
Pre-Procedural Eval Section A - 24 Hr Update-Section A only Date of Service: 10/22/24 The patient is an INPATIENT: No Changes since office visit: No Cold of Flu in the past 2 weeks, No New Medical Problems, No Changes in Medication and No Patient answered all questions The patient has been examined within 24 hours of the surgical procedure. The History & Physical has been completed within 30 days and I have reviewed it.: Yes Section B - Complete if H&P > 30 days Chief Complaint: SCREENING COLONOSCOPY Allergies: Allergies Allergy/AdvReac Type Severity Reaction Status Date / Time erythromycin base Allergy Unknown Unknown Verified 10/17/24 12:57 Plan I have reviewed the history and physical and performed a pertinent physical examination on my patient. No changes have occurred unless specified. Time Spent With Patient Time: Total time managing care of this patient today ____ minutes.
[2024-10-22 13:02] VITALS: BP 129/68; PULSE 93; RESP 18; TEMP 36.8; O2SAT 97
[2024-10-22] MEDS: Lactated Ringers 1,000 ML 100 ML IVCONT (13:04)
[2024-10-22 13:38] VITALS: BP 124/62; PULSE 84; RESP 18; TEMP 36.8; O2SAT 92
[2024-10-22 13:52] VITALS: BP 126/69; PULSE 80; RESP 16; TEMP 36.6; O2SAT 97
--- NOTE | 2024-10-22 14:21 | OP_ITS ---
DATE OF SERVICE: 10/22/2024 SURGEON: Genaro Oquendo MD INDICATIONS: Colon cancer screening and prior history of adenomatous colon polyps, PREOPERATIVE DIAGNOSIS: POSTOPERATIVE DIAGNOSIS: PROCEDURE PERFORMED: Colonoscopy to the terminal ileum with snare polypectomy. ESTIMATED BLOOD LOSS: COMPLICATIONS: ANESTHESIA: Monitored anesthesia care. ASSISTANTS: SPECIMENS: DESCRIPTION OF PROCEDURE: A history and physical was performed. The risks and benefits of the procedure were explained to the patient, and informed consent was obtained. The patient was placed in the left lateral decubitus position. A digital rectal exam was performed and was found to be normal. The Olympus pediatric video colonoscope was introduced into the rectum and advanced to the cecum. The cecum was identified by transillumination, palpation, and identification of ileocecal valve. Examination was performed. The scope was removed. He tolerated the procedure well and was returned to the recovery area stable condition. FINDINGS: The terminal ileum was examined and appeared normal. The visualized colonic mucosa was normal. The quality of the prep was good. A single polyp measuring approximately 7 mm was identified at 45 cm and removed with a cold snare and recovered via suction. No other polyps were identified. Retroflexed examination showed small internal hemorrhoids. Diverticulosis of the sigmoid was noted to moderate degree. IMPRESSION: Colon polyp. RECOMMENDATION: Follow up the biopsy results. MD ALEX Sorenson/REGGIE / [id number]
== END 2024-10-22 14:39 | disposition home or self-care (01) ==
PROVIDERS: PCP Nurse Practitioner Family; Visit Provider Internal Medicine Gastroenterology
PROC: 0DJD8ZZ Inspection of Lower Intestinal Tract, Via Natural or Artificial Opening Endoscopic (ICD-10-PCS; CPT 45378; principal; 2024-10-22 13:00)
DX: Z12.11 Encounter for screening for malignant neoplasm of colon (principal); D12.5 Benign neoplasm of sigmoid colon; K57.30 Diverticulosis of large intestine without perforation or abscess without bleeding; K64.8 Other hemorrhoids; Z86.0101 Personal history of adenomatous and serrated colon polyps; Z83.719 Family history of colon polyps, unspecified; I10 Essential (primary) hypertension; E78.5 Hyperlipidemia, unspecified; J44.9 Chronic obstructive pulmonary disease, unspecified; Z99.81 Dependence on supplemental oxygen; Z79.899 Other long term (current) drug therapy; Z79.02 Long term (current) use of antithrombotics/antiplatelets
CPT/HCPCS: 45385; 88305; J2704

== ENCOUNTER 2024-11-06 14:05 | Outpatient (AMB) | payer MEDICARE, SELFPAY ==
--- OUTSIDE RECORDS SUMMARY | 2024-10-22 09:00 | XMS_ITS ---
Author Organization [facility] Address [address] [place] [address] Care Team Providers Care Deli/Bakery Associate Name Role Phone Dimitri CORDOBA, Quinten Primary Care Provider Genaro Squires Jr REASON FOR VISIT screening Encounters Encounter Location Date Provider Diagnosis [facility] Outpatient [address] [place] [phone] 10/22/2024 Genaro Oquendo Jr Plan Of Treatment No Information Progress Notes * GERARDO HAYESNDOB:[birth year] (69 yo M)Acc No.[id number]:10/22/2024 COLON WITH MAC Patient: GERARDO HERR Provider: Jose G Oquendo MD :1955 A ge:69 Y S ex:Male Date:10/22/2024 Address:[address] [place], [place] [id number] Pcp:Quinten Mosley NP Subjective: * Chief Complaints: * 1 . Screening. * Medical History: Objective: * Vitals: Assessment: Plan: * Treatment: * * The named appointment provid er may or may not be the originator of this progress note, and it is not deemed complete until electronically signed by the appointment provider. Sign off status: Pending * Provider: Jose G Oquendo MD Date: 10/22/2024 Generated for Naziai ng/Fabevg/eTransmitting on: 11/06/2024 02:51 PM EDT
--- OUTSIDE RECORDS SUMMARY | 2024-11-06 14:51 | XMS_ITS | Patient Health Record ---
Author Organization [facility] Address [address] [facility] [address] [place] [phone] Care Team Providers Care Geology Instructor Name Role Phone Dimitri CORDOBA, Quinten Primary Care Provider Genaro Squires Jr Unavailable [phone] Allergies Allergen (clinical drug ingredient) Drug/Non Drug Allergy documented on EMR Reaction Allergy Type Onset Date Status Seasonal IC Unknown Drug Allergy Activ e erythromycin Erythromycin Unknown Drug Allergy A ctive Results Component Value Reference Range Notes Pathology Reviewed date:11/03/2024 08:10:21 AM Interpretation: Performing Lab:[facility], [address] [place] [id number] Notes/Report: Reason For Referral Referring Provider First Name Quinten Referring Provider Last Name Dimitri Referred Organization [facility] Referred Provider Genaro Oquendo Jr Referred Address [address] [place] [address], [place] [address] [place] [phone], Referred Provider Specialty Gastroentero logy Referral Priority [...] Problem Status W/U Status Risk Notes Problem [id number] Colon cancer screening (Z12.11) Active confirmed Problem [id number] Encounter for other preprocedural examination (Z01.818) Active confirmed Vital Signs Temperature 98.1 degrees Fahrenheit 09/29/2024 Blood pressure diastolic 01 mm Hg 09/29/2024 Height 68 in 09/29/2024 Blood pressure systolic 001 mm Hg 09/29/2024 Weight 178 lbs 09/29/2024 BMI 27.06 kg/m2 09/29/2024 Encounters Encounter Location Date Provider Diagnosis [facility] [address] [place] [phone] 10/22/2024 Genaro Oquendo Jr [facility] [address] [place] [phone] 09/29/2024 Genaro Oquendo Jr Colon cancer screening Z12.11 and Encounter for other preprocedural examination Z01.818 [facility] [address] [place] [phone] 09/29/2024 Genaro Oquendo Jr [facility] [address] [place] [phone] 09/30/2024 Genaro Oquendo Jr [facility] [address] [place] [phone] 11/03/2024 Genaro Oquendo Jr Assessments Encounter Date Diagnosis [...] Name Order Date COLONOSCOPY 07/06/2021 COLONOSCOPY 09/29/2024 Insurance Providers Payer Name Payer Address Payer Phone Subscriber Number Group Number Insured Name Patient Relationship to Insured Coverage Start Date Coverage End Date [facility] [employer] [address] [place] [id number] GERARDO HAYES Self - patient is the insured Medical (General) History Medical History History ICD Code Asthma/COPD Hypertension Hyperlipidemia Gout Elevated PSA Colonoscopy 07/31, multiple adenomas, 3-y ear follow-up Surgical History Surgery Date(Month/Year) left knee 1989 umbilical hernia 1979 appendix 1966
[2024-11-06 15:02] VITALS: BP 116/56; PULSE 100; TEMP 36.7; O2SAT 92; BMI 27.7
--- NOTE | 2024-11-06 15:02 | AM.OFFWIN_ITS ---
Intake Vital Signs 11/06/24 15:02 Height 5 ft 8 in Weight 182 lb BMI 27.7 BP 116/56 L Blood Pressure Location Lt brachial Position Sitting Pulse 100 Pulse Source Pulse Oximeter Temp 98.0 F Temp Source Oral Pulse Oximetry (%) 92 Oxygen Delivery Method Nasal Cannula Oxygen Flow Rate 5 Comment 5L O2 on pulse Intake Visit Reasons: ep left ear blocked cannot hear Patient Tobacco Use Status: Former Tobacco user Allergies erythromycin base Allergy (Unknown, Verified 11/06/24 15:05) Unknown Do you need a note to return to daycare/school/sports/work: No HPI HPI Comments History of Present Illness Details History - The patient is a 69-year-old male pres enting with left ear pain. - Symptoms began three weeks ago, with a sensation of water in the ear and buzzing. - Chronic nasal congestion has been cahran ged with allergy medication without significant relief. - He tried to clean his ear out with a q -tip. - He denies numbness, tingling, redness, discharge, CARDENAS, cough, sore throat, congestion, runny nose, or dizziness. Physical Exam General: Cooperative, healthy appearing, comfortable, no acute distress and well developed Head: Normal to inspection Ears: External ears normal on the left side. Right ear is red with no cerumen noted in the canal. TM's visualized. Face and sinus: Normal facial exam. No TTP of the sinuses. Neck: Normal visual inspection. Full ROM. No lymphadenopathy noted. Respiratory: Normal respiratory effort and able to speak in complete sentences. Clear to auscultation bilaterally. No w/r/r noted. Cardiac: RRR, no m/r/g noted. Normal S1 and S2 noted. Skin: No rashes or lesions noted Neuro: Patient oriented x3 Patient was informed and verbally consented to the use of an ambient scribe for clinic note documentation during this visit. [facility] Medical History (Updated 10/15/24 @ 14:32 by Donovan De Paz MD) Hx of sigmoidoscopy Arthritis GERD (gastroesophageal reflux disease) Numbness Pneumonia URI, acute Habitual snoring Bronchitis O2 dependent Elevated PSA Gout Hyperlipidemia HTN (hypertension) COPD (chronic obstructive pulmonary disease) Asthma Elevated prostate specific antigen [PSA] Surgical History (Updated 10/14/24 @ 11:06 by Savi Tolliver RN) H/O colonoscopy History of left knee surgery History of umbilical hernia repair History of appendectomy Social History Are you a primary career information specialist to a significant other at home: No Do you presently have visiting nurse or other home services: Yes (oxygen) Patient Tobacco Use Status: Former Tobacco user Tobacco use type: Cigarette Review of Systems Const All systems reviewed & are unremarkable except as noted in HPI and below Physical Exam Vital Signs: Last Vital Signs Temp 98.0 F 11/06/24 15:02 Pulse 100 11/06/24 15:02 BP 116/56 L 11/06/24 15:02 Pulse Ox 92 11/06/24 15:02 Oxygen Delivery Method Nasal Cannula 11/06/24 15:02 Oxygen Flow Rate 5 11/06/24 15:02 BMI result Body Mass Index 27.7 Assessment & Plan Assessment & Plan (1) Otitis externa: Code(s): H60.90 - Unspecified otitis externa, unspecified ear Qualifiers: Chronicity: acute Laterality: left Otitis externa type: diffuse Qualified Code(s): H60.312 - Diffuse otitis externa, left ear Plan Most likely OE vs OM vs effusion vs cerumen impaction plan - Prescribed antibiotic and steroid ear drops to be administered three times daily for seven days. - Continue with allergy medication as needed. - Follow up with PCP Medications: New yqnzugot-uzpbujznn-YV 3.5-10,000-1 mg/mL-unit/mL-% 4 drps otic (ears) Q8H 10 mL 0RF 7 days Coding Level of Care Code Est Pt Level 3 (31917) Diagnoses Acute diffuse otitis externa of left ear H60.312 Chronicity: acute Laterality: left Otitis externa type: diffuse
== END 2024-11-06 15:38 | disposition home or self-care (01) ==
PROVIDERS: PCP Nurse Practitioner Family; Visit Provider Physician Assistant Medical
DX: H60.312 Diffuse otitis externa, left ear (principal)

== ENCOUNTER → 2024-11-06 14:05 | Outpatient (BNVA) | payer MEDICARE, SELFPAY | PROVIDERS: PCP Nurse Practitioner Family; Visit Provider Physician Assistant Medical | DX: H60.312 Diffuse otitis externa, left ear (principal) | CPT/HCPCS: 99212 ==